=== PATIENT | male | born 1960 | race Caucasian/White ===

== ENCOUNTER 2016-06-04 11:03 | Inpatient (IN) | payer MEDICAID, OTHER ==
[~2016-06-04] VITALS: Ht 188 cm; Wt 162.0 kg
[~2016-06-04 11:03] MED LIST: ASPI-556 PO; ATOR40TA28 PO; DIVA500T35 PO; HYDR25TA PO; LEVO100 PO; LITH300C3 PO; METF500T4 PO; RISP4 PO; TOLT4CAP33 PO; VITAD5000 PO
[2016-06-04] MEDS ORDERED: LEVO125 PO (11:21)
[2016-06-04] MEDS ORDERED: OMEP20 PO (11:21)
[2016-06-04] MEDS ORDERED: DIPH25CA85 PO (11:21)
[2016-06-04] MEDS ORDERED: GEMF600T3 PO (11:21)
[2016-06-04] MEDS ORDERED: DOCU-275 PO (11:21)
[2016-06-04] MEDS ORDERED: HALO5 PO (11:21)
[2016-06-04] MEDS ORDERED: LITH300C3 PO (11:21)
[2016-06-04] MEDS ORDERED: OMEG-12 PO (11:21)
[2016-06-04] MEDS ORDERED: IPRATROPIUM BROMIDE 0.5 MG/2.5 ML NEB SOLUTION NEB ONE ×2 (12:15→16:00)
[2016-06-04] MEDS ORDERED: ALBUTEROL SULFATE 5 MG/ML 20 ML NEB SOLN [BULK] NEB ONE ×2 (12:15→16:00)
[2016-06-04 12:42] LABS: BASOPHILS % (AUTO) 0.2 % (0.0-2.0); EOSINOPHILS % (AUTO) 2.4 % (1.0-6.0); HEMATOCRIT 39.5 % (41-53); HEMOGLOBIN 12.8 g/dL (13.5-17.5); LYMPHOCYTES # (AUTO) 0.9 K/uL (1.0-4.8); LYMPHOCYTES % (AUTO) 25.8 % (22.0-44.0); MEAN CORPUSCULAR HEMOGLOBIN 27.6 pg (26.0-34.0); MEAN CORPUSCULAR HGB CONC 32.3 G/dL (31.0-37.0); MEAN CORPUSCULAR VOLUME 85 fL (80-100); MONOCYTES # (AUTO) 0.4 K/uL (0.1-1.0); MONOCYTES % (AUTO) 11.4 % (2.0-9.0); NEUTROPHILS # (AUTO) 2.1 K/uL (1.8-7.7); NEUTROPHILS % (AUTO) 60.2 % (40.0-70.0); PLATELET COUNT (AUTO) 182 K/uL (150-450); RED BLOOD CELL COUNT(AUTO) 4.62 MIL/uL (4.50-5.90); RED CELL DISTRIBUTION WIDTH 15.3 % (11.5-14.5); WHITE BLOOD COUNT (AUTO) 3.5 K/uL (4.5-11.0)
[2016-06-04 12:50] LABS: ANION GAP 0 mmol/L (8-16); CALCIUM, TOTAL 8.3 mg/dL (8.8-10.5); CARBON DIOXIDE 35 mmol/L (22-29); CHLORIDE 99 mmol/L (98-107); CREATININE 1.03 mg/dL (0.60-1.30); GLOMERULAR FILTR. RATE CALC > 60 mL/min (>60); POTASSIUM 4.3 mmol/L (3.5-5.1); SODIUM SERUM 134 mmol/L (136-145); UREA NITROGEN, BLOOD 12 mg/dL (7-18)
[2016-06-04 13:04] LABS: ALANINE AMINOTRANSFERASE 19 U/L (12-78); ALBUMIN 3.3 g/dL (3.4-5.0); ASPARTATE AMINOTRANSFERASE 13 U/L (15-37); B-TYPE NATRIURETIC PEPTIDE 16 pg/mL (0-100); BILIRUBIN,TOTAL 0.3 mg/dL (0.1-1.0); THYROID STIMULATING HORMONE 13.75 uIU/mL (0.36-3.74); TOTAL PROTEIN, SERUM 7.1 g/dL (6.4-8.2); VALPROIC ACID 81 mcg/mL (50-100)
[2016-06-04 13:20] LABS: APPEARANCE,URINE CLEAR (CLEAR); GLUCOSE, URINE (UA) NEGATIVE (NEGATIVE); KETONES,URINE NEGATIVE (NEGATIVE); LEUKOCYTE ESTERASE ,URINE NEGATIVE (NEGATIVE); OCCULT BLOOD,URINE NEGATIVE (NEGATIVE); PH,URINE 6.5 (5.0-8.0); PROTEIN,URINE NEGATIVE (NEGATIVE)
[2016-06-04] MEDS ORDERED: 0.9% SODIUM CHLORIDE 5 ML NEB SOLUTION NEB ONE ×2 (13:24→16:02)
[2016-06-04 13:25] LABS: ADD UA MICROSCOPIC NO
[2016-06-04 14:15] LABS: INFLUENZA TYPE B NEGATIVE FOR TYPE B (NEGATIVE)
[2016-06-04] MEDS ORDERED: LEVOFLOXACIN 750 MG/D5% WATER 150 ML IV ONE (15:00)
[2016-06-04] MEDS ORDERED: MAGNESIUM HYDROXIDE SUSPENSION 30 ML UDCUP PO PRN (16:45)
[2016-06-04] MEDS ORDERED: DEXTROSE 50%-WATER 25 GM/50 ML SYRINGE IVP PRN (16:45)
[2016-06-04 17:51] VITALS: BP 113/65
[2016-06-04] MEDS ORDERED: PNEUMOCOCCAL VACCINE POLYVALENT 0.5 ML VIAL [PPSV23] IM ONE (18:00)
[2016-06-04] MEDS ORDERED: SODIUM CHLORIDE 0.9% 500 ML IV ONE (18:18)
[2016-06-04] MEDS: AZITHROMYCIN 500 MG/NS 250 ML IV SCH (18:20)
[2016-06-04] MEDS: MethylPREDNISolone SOD SUCC 125 MG/2 ML VIAL IVP SCH (18:20)
[2016-06-04] MEDS: ACETAMINOPHEN 325 MG TABLET PO PRN (18:30)
[2016-06-04 19:48] VITALS: BP 132/65
[2016-06-04 20:50] LABS: GLUCOSE,POINT OF CARE 132 MG/DL (70-110)
[2016-06-04] MEDS: BUDESONIDE 0.5 MG/2 ML NEB SOLUTION NEB SCH (21:00)
[2016-06-04] MEDS: INSULIN ASPART 100 UNITS/ML SQ PRN (22:54)
[2016-06-04 22:59] VITALS: BP 148/83
[2016-06-04] MEDS: DOCUSATE SODIUM 100 MG CAPSULE PO SCH (23:12)
[2016-06-04] MEDS: BENZONATATE 100 MG CAPSULE PO SCH (23:12)
[2016-06-05] MEDS: IPRATROPIUM BROMIDE 0.5 MG/2.5 ML NEB SOLUTION NEB PRN ×2 (00:22→09:38)
[2016-06-05] MEDS: ALBUTEROL SULFATE 2.5 MG/0.5 ML NEB SOLUTION NEB PRN ×2 (00:22→09:38)
[2016-06-05] MEDS: MethylPREDNISolone SOD SUCC 125 MG/2 ML VIAL IVP SCH ×5 (01:07→23:45)
[2016-06-05] MEDS: HEPARIN SODIUM,PORCINE 5,000 UNITS/ML VIAL SQ SCH ×4 (01:07→23:45)
[2016-06-05 04:12] LABS: GLUCOSE COMMENT 1 Received Meds; GLUCOSE,POINT OF CARE 192 MG/DL (70-110)
[2016-06-05 05:12] VITALS: BP 137/84
[2016-06-05] MEDS: BENZONATATE 100 MG CAPSULE PO SCH ×4 (05:22→23:46)
[2016-06-05] MEDS: LEVOTHYROXINE SODIUM 150 MCG TABLET PO SCH (06:09)
[2016-06-05] MEDS: INSULIN ASPART 100 UNITS/ML SQ PRN ×4 (06:10→21:03)
[2016-06-05 06:11] LABS: GLUCOSE COMMENT 1 Received Meds; GLUCOSE,POINT OF CARE 185 MG/DL (70-110)
[2016-06-05 07:17] LABS: EOSINOPHILS % (AUTO) 0 % (1.0-6.0); HEMATOCRIT 39.6 % (41-53); HEMOGLOBIN 12.9 g/dL (13.5-17.5); LYMPHOCYTES # (AUTO) 0.6 K/uL (1.0-4.8); LYMPHOCYTES % (AUTO) 12.8 % (22.0-44.0); MEAN CORPUSCULAR HGB CONC 32.5 G/dL (31.0-37.0); MEAN CORPUSCULAR VOLUME 86 fL (80-100); MONOCYTES # (AUTO) 0.1 K/uL (0.1-1.0); NEUTROPHILS # (AUTO) 4.2 K/uL (1.8-7.7); NEUTROPHILS % (AUTO) 84.2 % (40.0-70.0); PLATELET COUNT (AUTO) 200 K/uL (150-450); RED BLOOD CELL COUNT(AUTO) 4.61 MIL/uL (4.50-5.90)
[2016-06-05 07:37] LABS: ALANINE AMINOTRANSFERASE 18 U/L (12-78); ALBUMIN 3.2 g/dL (3.4-5.0); ANION GAP 6 mmol/L (8-16); ASPARTATE AMINOTRANSFERASE 8 U/L (15-37); BILIRUBIN,TOTAL 0.3 mg/dL (0.1-1.0); CALCIUM, TOTAL 8.8 mg/dL (8.8-10.5); CARBON DIOXIDE 33 mmol/L (22-29); CHLORIDE 97 mmol/L (98-107); CREATININE 1.07 mg/dL (0.60-1.30); GLOMERULAR FILTR. RATE CALC > 60 mL/min (>60); PHOSPHORUS 3.3 mg/dL (2.5-4.9); POTASSIUM 4.9 mmol/L (3.5-5.1); SODIUM SERUM 136 mmol/L (136-145); TOTAL PROTEIN, SERUM 7.5 g/dL (6.4-8.2); UREA NITROGEN, BLOOD 11 mg/dL (7-18)
[2016-06-05 07:43] VITALS: BP 113/80
[2016-06-05] MEDS: DOCUSATE SODIUM 100 MG CAPSULE PO SCH ×2 (08:53→21:00)
[2016-06-05] MEDS: PANTOPRAZOLE SODIUM 40 MG DR TABLET PO SCH (08:53)
[2016-06-05] MEDS: BUDESONIDE 0.5 MG/2 ML NEB SOLUTION NEB SCH ×2 (09:38→20:01)
[2016-06-05 09:46] LABS: ABG A-A DIFF O2 39.1 mmHg (10-20.0); ABG BASE EXCESS 1.8 mmol/L (-2.0-3.0); ABG HCO3 25.2 mmol/L (22.0-26.0); ABG OXYHEMOGLOBIN 81.7 % (94.0-100.0); ABG PCO2 48 mmHg (35-45); ABG PH 7.373 (7.35-7.450); ALLEN TEST, BLOOD GAS Positive; TEMPERATURE, FAHRENHEIT, BG 98.6 FAHREN (96.0-98.6)
[2016-06-05 12:07] LABS: GLUCOSE COMMENT 1 Received Meds; GLUCOSE,POINT OF CARE 156 MG/DL (70-110)
[2016-06-05] MEDS: DIVALPROEX SODIUM 500 MG DR TABLET PO SCH ×2 (12:07→21:01)
[2016-06-05 12:27] VITALS: BP 121/71
[2016-06-05] MEDS ORDERED: LORazepam 2 MG/ML VIAL IM PRN (12:45)
[2016-06-05] MEDS ORDERED: HALOPERIDOL LACTATE 5 MG/ML VIAL IM PRN ×2 (12:45)
[2016-06-05] MEDS ORDERED: HALOPERIDOL 5 MG TABLET PO PRN (12:45)
[2016-06-05] MEDS ORDERED: LORazepam 2 MG TABLET PO PRN (12:45)
[2016-06-05 15:39] VITALS: BP 131/86
[2016-06-05] MEDS: AZITHROMYCIN 500 MG/NS 250 ML IV SCH (17:23)
[2016-06-05] MEDS: ACETAMINOPHEN 325 MG TABLET PO PRN (17:42)
[2016-06-05 18:16] LABS: GLUCOSE COMMENT 1 Received Meds; GLUCOSE,POINT OF CARE 181 MG/DL (70-110)
[2016-06-05 19:51] VITALS: BP 139/65
[2016-06-05 21:16] LABS: GLUCOSE COMMENT 1 Received Meds; GLUCOSE,POINT OF CARE 162 MG/DL (70-110)
[2016-06-05 23:49] VITALS: BP 142/91
[2016-06-06 04:21] VITALS: BP 141/75
[2016-06-06] MEDS: MethylPREDNISolone SOD SUCC 125 MG/2 ML VIAL IVP SCH (06:15)
[2016-06-06] MEDS: LEVOTHYROXINE SODIUM 150 MCG TABLET PO SCH (06:15)
[2016-06-06] MEDS: INSULIN ASPART 100 UNITS/ML SQ PRN ×4 (06:17→20:35)
[2016-06-06 06:31] LABS: GLUCOSE COMMENT 1 Received Meds; GLUCOSE,POINT OF CARE 214 MG/DL (70-110)
[2016-06-06 07:36] VITALS: BP 135/77
[2016-06-06] MEDS: BUDESONIDE 0.5 MG/2 ML NEB SOLUTION NEB SCH ×2 (07:45→20:29)
[2016-06-06] MEDS: BENZONATATE 100 MG CAPSULE PO SCH ×2 (08:26→17:25)
[2016-06-06] MEDS: PANTOPRAZOLE SODIUM 40 MG DR TABLET PO SCH (08:26)
[2016-06-06] MEDS: DOCUSATE SODIUM 100 MG CAPSULE PO SCH ×2 (08:26→20:34)
[2016-06-06] MEDS: DIVALPROEX SODIUM 500 MG DR TABLET PO SCH ×2 (08:28→20:34)
[2016-06-06] MEDS: HEPARIN SODIUM,PORCINE 5,000 UNITS/ML VIAL SQ SCH ×2 (08:29→17:25)
[2016-06-06 11:50] VITALS: BP 132/79
[2016-06-06 11:56] LABS: GLUCOSE,POINT OF CARE 152 MG/DL (70-110)
[2016-06-06] MEDS: PredniSONE 10 MG TABLET PO SCH (12:33)
[2016-06-06 15:24] VITALS: BP 136/79
[2016-06-06] MEDS: AZITHROMYCIN 500 MG/NS 250 ML IV SCH (17:26)
[2016-06-06 17:42] LABS: GLUCOSE COMMENT 1 Received Meds; GLUCOSE,POINT OF CARE 151 MG/DL (70-110)
[2016-06-06 19:38] VITALS: BP 142/78
[2016-06-06] MEDS: ALBUTEROL SULFATE 2.5 MG/0.5 ML NEB SOLUTION NEB PRN (20:29)
[2016-06-06] MEDS: IPRATROPIUM BROMIDE 0.5 MG/2.5 ML NEB SOLUTION NEB PRN (20:29)
[2016-06-06 20:50] LABS: GLUCOSE COMMENT 1 Received Meds; GLUCOSE,POINT OF CARE 178 MG/DL (70-110)
[2016-06-06 23:19] VITALS: BP 128/80
[2016-06-07] MEDS: HEPARIN SODIUM,PORCINE 5,000 UNITS/ML VIAL SQ SCH ×2 (00:17→08:31)
[2016-06-07] MEDS: BENZONATATE 100 MG CAPSULE PO SCH ×2 (00:17→08:31)
[2016-06-07 05:10] VITALS: BP 131/77
[2016-06-07] MEDS: LEVOTHYROXINE SODIUM 150 MCG TABLET PO SCH (05:57)
[2016-06-07 06:02] LABS: GLUCOSE COMMENT 1 Received Meds; GLUCOSE,POINT OF CARE 118 MG/DL (70-110)
[2016-06-07 07:10] VITALS: BP 111/73
[2016-06-07] MEDS: PredniSONE 10 MG TABLET PO SCH (08:31)
[2016-06-07] MEDS: PANTOPRAZOLE SODIUM 40 MG DR TABLET PO SCH (08:31)
[2016-06-07] MEDS: DOCUSATE SODIUM 100 MG CAPSULE PO SCH (08:31)
[2016-06-07] MEDS: DIVALPROEX SODIUM 500 MG DR TABLET PO SCH (08:32)
[2016-06-07] MEDS: BUDESONIDE 0.5 MG/2 ML NEB SOLUTION NEB SCH (09:50)
[2016-06-07 11:14] VITALS: BP 131/88
[2016-06-07 11:51] LABS: GLUCOSE,POINT OF CARE 113 MG/DL (70-110)
[2016-06-08] MEDS ORDERED: IPRAHFA IH (21:46)
[2016-06-08] MEDS ORDERED: ALBU0.212 IH (21:46)
[2016-09-10] MEDS ORDERED: TOLT4CAP33 PO (11:37)
== END 2016-06-07 13:12 | disposition home or self-care (01) | DRG 133 ==
LOC: EMS 11:05 → 6N 16:27 → MERGE 16:27
PROVIDERS: ADMIT Internal Medicine; ATTEND Internal Medicine
DX: J96.20 Acute and chronic respiratory failure, unspecified whether with hypoxia or hypercapnia (principal); E44.0 Moderate protein-calorie malnutrition; J44.1 Chronic obstructive pulmonary disease with (acute) exacerbation; E87.1 Hypo-osmolality and hyponatremia; Z68.42 Body mass index [BMI] 45.0-49.9, adult; I10 Essential (primary) hypertension; F20.9 Schizophrenia, unspecified; E11.9 Type 2 diabetes mellitus without complications; E03.9 Hypothyroidism, unspecified; F17.210 Nicotine dependence, cigarettes, uncomplicated; E66.01 Morbid (severe) obesity due to excess calories; G47.33 Obstructive sleep apnea (adult) (pediatric); F31.9 Bipolar disorder, unspecified; Z79.82 Long term (current) use of aspirin; Z79.899 Other long term (current) drug therapy; Z88.2 Allergy status to sulfonamides; Z98.890 Other specified postprocedural states; Z28.20 Immunization not carried out because of patient decision for unspecified reason
CPT/HCPCS: 71250; 82805; 82962; 83735; 84100; 84443; 87040; 87804; 90471; 93005; 94640; 94644; 96365; 96366; 99285; J0456; J1644; J1956; J2930; J7040

== ENCOUNTER 2016-06-08 21:03 | Emergency (ER) | payer OTHER ==
[~2016-06-08] VITALS: Ht 190.5 cm; Wt 115.0 kg
[~2016-06-08 21:03] MED LIST changes: +DOCU-275 PO; -HYDR25TA PO; +OMEG-12 PO; +OMEP20 PO; -TOLT4CAP33 PO
[2016-06-08 21:36] LABS: GLUCOSE,POINT OF CARE 159 MG/DL (70-110)
[2016-06-08 21:43] LABS: BASOPHILS # (AUTO) 0.04 K/uL (0.00-0.20); BASOPHILS % (AUTO) 0.6 % (0.0-2.0); EOSINOPHILS # (AUTO) 0.08 K/uL (0.00-0.70); EOSINOPHILS % (AUTO) 1.27 % (1.0-6.0); HEMATOCRIT 42.6 % (41-53); HEMOGLOBIN 13.6 g/dL (13.5-17.5); LYMPHOCYTES # (AUTO) 2.3 K/uL (1.0-4.8); LYMPHOCYTES % (AUTO) 34.2 % (22.0-44.0); MEAN CORPUSCULAR HEMOGLOBIN 27.4 pg (26.0-34.0); MEAN CORPUSCULAR VOLUME 86 fL (80-100); MONOCYTES # (AUTO) 0.7 K/uL (0.1-1.0); MONOCYTES % (AUTO) 10.5 % (2.0-9.0); NEUTROPHILS # (AUTO) 3.5 K/uL (1.8-7.7); NEUTROPHILS % (AUTO) 53.4 % (40.0-70.0); PLATELET COUNT (AUTO) 215 K/uL (150-450); RED BLOOD CELL COUNT(AUTO) 4.97 MIL/uL (4.50-5.90); RED CELL DISTRIBUTION WIDTH 15.8 % (11.5-14.5); WHITE BLOOD COUNT (AUTO) 6.6 K/uL (4.5-11.0)
[2016-06-08] MEDS ORDERED: ALBU0.212 IH (21:46)
[2016-06-08] MEDS ORDERED: IPRAHFA IH (21:46)
[2016-06-08 21:48] LABS: ANION GAP 2 mmol/L (8-16); CALCIUM, TOTAL 8.5 mg/dL (8.8-10.5); CARBON DIOXIDE 35 mmol/L (22-29); CHLORIDE 100 mmol/L (98-107); CREATININE 1.06 mg/dL (0.60-1.30); GLOMERULAR FILTR. RATE CALC > 60 mL/min (>60); POTASSIUM 3.9 mmol/L (3.5-5.1); SODIUM SERUM 137 mmol/L (136-145); UREA NITROGEN, BLOOD 21 mg/dL (7-18)
[2016-06-08 21:52] LABS: PROTHROMBIN TIME 10.6 SEC (9.4-11.6)
[2016-06-08 22:04] LABS: B-TYPE NATRIURETIC PEPTIDE 32 pg/mL (0-100)
[2016-06-08 22:13] LABS: ALANINE AMINOTRANSFERASE 22 U/L (12-78); ALBUMIN 3.2 g/dL (3.4-5.0); ASPARTATE AMINOTRANSFERASE 10 U/L (15-37); BILIRUBIN,TOTAL 0.2 mg/dL (0.1-1.0); CREATINE KINASE MB 2.4 ng/mL (0-5); CREATINE KINASE, TOTAL 76 U/L (39-308); TOTAL PROTEIN, SERUM 6.9 g/dL (6.4-8.2)
[2016-06-08 22:20] LABS: LACTIC ACID 1.1 mmol/L (0.4-2.0)
[2016-06-08] MEDS ORDERED: LEVALBUTEROL HCL 1.25 MG/0.5 ML NEB SOLUTION NEB ONE (22:45)
[2016-06-08] MEDS ORDERED: IPRATROPIUM BROMIDE 0.5 MG/2.5 ML NEB SOLUTION NEB ONE (22:45)
[2016-06-08] MEDS ORDERED: DEXAMETHASONE SOD PHOS 4 MG/ML 5 ML VIAL IVP ONE (22:45)
[2016-06-08] MEDS ORDERED: HALOPERIDOL LACTATE 5 MG/ML VIAL IM ONE (23:00)
[2016-06-09] MEDS ORDERED: CefTRIAXone 1 GM/DEXTROSE 50 ML IV ONE (00:45)
[2016-06-09] MEDS ORDERED: LORazepam 2 MG/ML VIAL IVP ONE (01:30)
[2016-06-09] MEDS ORDERED: HALOPERIDOL LACTATE 5 MG/ML VIAL IVP ONE (01:30)
[2016-06-09 10:26] VITALS: BP 118/81
[2016-09-10] MEDS ORDERED: TOLT4CAP33 PO (11:37)
== END 2016-06-09 10:43 | disposition home or self-care (01) ==
LOC: EDBD 21:06 → EMS 21:06
DX: J18.9 Pneumonia, unspecified organism (principal); F29 Unspecified psychosis not due to a substance or known physiological condition; J44.9 Chronic obstructive pulmonary disease, unspecified
CPT/HCPCS: 71010; 80053; 82550; 82553; 82962; 83605; 83880; 84484; 85025; 85610; 85730; 87040; 93005; 94640; 96365; 96372; 96375; 99285; J0696; J1100; J1630 ×2; J2060; Z7610

== ENCOUNTER 2016-06-11 11:45 | Inpatient (IN) | payer MEDICAID, OTHER ==
[~2016-06-11] VITALS: Ht 188 cm; Wt 157.4 kg
[~2016-06-11 11:45] MED LIST changes: +ALBU0.212 IH; +IPRAHFA IH
[2016-06-11] MEDS ORDERED: LITH300C3 PO (12:17)
[2016-06-11] MEDS ORDERED: GEMF600T3 PO (12:17)
[2016-06-11] MEDS ORDERED: RISP4 PO (12:17)
[2016-06-11] MEDS ORDERED: ALBU8.5H IH (12:17)
[2016-06-11] MEDS ORDERED: HALO5 PO (12:17)
[2016-06-11] MEDS ORDERED: DIPH25 PO (12:17)
[2016-06-11] MEDS ORDERED: METF500T4 PO (12:17)
[2016-06-11] MEDS ORDERED: LEVO100 PO (12:17)
[2016-06-11] MEDS ORDERED: ATOR40TA28 PO (12:17)
[2016-06-11] MEDS ORDERED: DOCU-275 PO (12:17)
[2016-06-11] MEDS ORDERED: OMEP20 PO (12:17)
[2016-06-11] MEDS ORDERED: VITAD5000 PO (12:17)
[2016-06-11] MEDS ORDERED: DIVA500T35 PO (12:17)
[2016-06-11] MEDS ORDERED: OMEG300C3 PO (12:17)
[2016-06-11] MEDS ORDERED: IPRATROPIUM BROMIDE 0.5 MG/2.5 ML NEB SOLUTION NEB ONE (12:30)
[2016-06-11] MEDS ORDERED: ALBUTEROL SULFATE 2.5 MG/0.5 ML NEB SOLUTION NEB ONE (12:30)
[2016-06-11 12:36] LABS: GLUCOSE,POINT OF CARE 121 MG/DL (70-110)
[2016-06-11] MEDS ORDERED: 0.9% SODIUM CHLORIDE 5 ML NEB SOLUTION NEB ONE (12:40)
[2016-06-11 12:43] LABS: BASOPHILS % (AUTO) 0.4 % (0.0-2.0); EOSINOPHILS % (AUTO) 0.8 % (1.0-6.0); HEMOGLOBIN 13.4 g/dL (13.5-17.5); LYMPHOCYTES # (AUTO) 2.3 K/uL (1.0-4.8); LYMPHOCYTES % (AUTO) 31.4 % (22.0-44.0); MEAN CORPUSCULAR HEMOGLOBIN 27.4 pg (26.0-34.0); MEAN CORPUSCULAR HGB CONC 31.8 G/dL (31.0-37.0); MEAN CORPUSCULAR VOLUME 86 fL (80-100); MONOCYTES # (AUTO) 0.5 K/uL (0.1-1.0); MONOCYTES % (AUTO) 6.8 % (2.0-9.0); NEUTROPHILS # (AUTO) 4.4 K/uL (1.8-7.7); NEUTROPHILS % (AUTO) 60.6 % (40.0-70.0); PLATELET COUNT (AUTO) 227 K/uL (150-450); RED BLOOD CELL COUNT(AUTO) 4.89 MIL/uL (4.50-5.90); RED CELL DISTRIBUTION WIDTH 15.3 % (11.5-14.5); WHITE BLOOD COUNT (AUTO) 7.2 K/uL (4.5-11.0)
[2016-06-11 12:52] LABS: ANION GAP 7 mmol/L (8-16); CALCIUM, TOTAL 8.2 mg/dL (8.8-10.5); CARBON DIOXIDE 33 mmol/L (22-29); CHLORIDE 99 mmol/L (98-107); CREATININE 0.94 mg/dL (0.60-1.30); GLOMERULAR FILTR. RATE CALC > 60 mL/min (>60); POTASSIUM 3.7 mmol/L (3.5-5.1); SODIUM SERUM 139 mmol/L (136-145); UREA NITROGEN, BLOOD 16 mg/dL (7-18)
[2016-06-11 13:04] LABS: B-TYPE NATRIURETIC PEPTIDE 22 pg/mL (0-100)
[2016-06-11 13:20] LABS: ALANINE AMINOTRANSFERASE 25 U/L (12-78); ASPARTATE AMINOTRANSFERASE 10 U/L (15-37); BILIRUBIN,TOTAL 0.3 mg/dL (0.1-1.0); TOTAL PROTEIN, SERUM 6.7 g/dL (6.4-8.2)
[2016-06-11] MEDS ORDERED: LORazepam 2 MG TABLET PO ONE (17:15)
[2016-06-11] MEDS ORDERED: LORazepam 2 MG TABLET PO PRN (21:45)
[2016-06-11] MEDS ORDERED: HALOPERIDOL 5 MG TABLET PO PRN (21:45)
[2016-06-11] MEDS ORDERED: ZOLPIDEM TARTRATE 10 MG TABLET PO PRN (21:45)
[2016-06-11 22:31] LABS: GLUCOSE,POINT OF CARE 138 MG/DL (70-110)
[2016-06-11 23:17] VITALS: BP 130/79
[2016-06-12] MEDS ORDERED: INFLUENZA VIRUS VACCINE QVS 2016-17 (3YR+)/PF 60 MCG/0.5 ML SYRINGE IM ONE (00:30)
[2016-06-12] MEDS ORDERED: PNEUMOCOCCAL VACCINE POLYVALENT 0.5 ML VIAL [PPSV23] IM ONE (00:30)
[2016-06-12 00:32] LABS: GLUCOSE, URINE (UA) NEGATIVE (NEGATIVE); KETONES,URINE NEGATIVE (NEGATIVE); LEUKOCYTE ESTERASE ,URINE NEGATIVE (NEGATIVE); OCCULT BLOOD,URINE NEGATIVE (NEGATIVE); PH,URINE 5.5 (5.0-8.0); PROTEIN,URINE NEGATIVE (NEGATIVE)
[2016-06-12 00:35] LABS: APPEARANCE,URINE HAZY (CLEAR)
[2016-06-12 00:36] VITALS: BP 138/85
[2016-06-12 00:36] LABS: ADD UA MICROSCOPIC NO
[2016-06-12 09:30] VITALS: BP 149/92
[2016-06-12] MEDS ORDERED: IBUPROFEN 400 MG TABLET PO PRN (10:00)
[2016-06-12] MEDS ORDERED: ACETAMINOPHEN 325 MG TABLET PO PRN (10:00)
[2016-06-12 17:00] VITALS: BP 114/71
[2016-06-12] MEDS: RisperiDONE 3 MG TABLET PO SCH (18:12)
[2016-06-12] MEDS: DIVALPROEX SODIUM 500 MG DR TABLET PO SCH (18:12)
[2016-06-12] MEDS: LITHIUM CARBONATE 300 MG CAPSULE PO SCH (18:12)
[2016-06-12 18:26] LABS: GLUCOSE COMMENT 1 Post Meal; GLUCOSE,POINT OF CARE 151 MG/DL (70-110)
[2016-06-12] MEDS ORDERED: ALBUTEROL SULFATE HFA 90 MCG/PUFF 8 GM INHALER IH PRN (19:15)
[2016-06-12] MEDS: ATORVASTATIN CALCIUM 40 MG TABLET PO SCH (21:07)
[2016-06-13 06:11] LABS: GLUCOSE,POINT OF CARE 152 MG/DL (70-110)
[2016-06-13 06:57] LABS: HEMOGLOBIN A1C 6.7 % (4.5-6.2)
[2016-06-13] MEDS: LEVOTHYROXINE SODIUM 100 MCG TABLET PO SCH (06:58)
[2016-06-13] MEDS: MetFORMIN HCL 500 MG TABLET PO SCH ×2 (07:01→17:17)
[2016-06-13 07:02] LABS: THYROID STIMULATING HORMONE 15.99 uIU/mL (0.36-3.74)
[2016-06-13 09:13] VITALS: BP 129/77
[2016-06-13] MEDS: LITHIUM CARBONATE 300 MG CAPSULE PO SCH ×2 (09:33→17:17)
[2016-06-13] MEDS: DIVALPROEX SODIUM 500 MG DR TABLET PO SCH ×2 (09:34→17:17)
[2016-06-13] MEDS: OMEPRAZOLE 20 MG CAPSULE PO SCH (09:34)
[2016-06-13] MEDS: RisperiDONE 3 MG TABLET PO SCH ×2 (09:34→17:17)
[2016-06-13 13:01] LABS: GLUCOSE,POINT OF CARE 140 MG/DL (70-110)
[2016-06-13 16:46] LABS: GLUCOSE COMMENT 1 Received Meds; GLUCOSE,POINT OF CARE 140 MG/DL (70-110)
[2016-06-13 16:54] VITALS: BP 128/73
[2016-06-13] MEDS: ATORVASTATIN CALCIUM 40 MG TABLET PO SCH (21:05)
[2016-06-13 21:21] LABS: GLUCOSE,POINT OF CARE 103 MG/DL (70-110)
[2016-06-14 05:21] LABS: GLUCOSE,POINT OF CARE 133 MG/DL (70-110)
[2016-06-14 06:14] VITALS: BP 125/72
[2016-06-14] MEDS: MetFORMIN HCL 500 MG TABLET PO SCH ×2 (06:33→17:47)
[2016-06-14] MEDS: LEVOTHYROXINE SODIUM 100 MCG TABLET PO SCH (06:33)
[2016-06-14] MEDS: OMEPRAZOLE 20 MG CAPSULE PO SCH (08:02)
[2016-06-14] MEDS: RisperiDONE 3 MG TABLET PO SCH ×2 (08:02→16:51)
[2016-06-14] MEDS: DIVALPROEX SODIUM 500 MG DR TABLET PO SCH ×2 (08:03→16:51)
[2016-06-14] MEDS: LITHIUM CARBONATE 300 MG CAPSULE PO SCH ×2 (08:03→16:51)
[2016-06-14 09:53] VITALS: BP 164/88
[2016-06-14 11:46] LABS: GLUCOSE,POINT OF CARE 115 MG/DL (70-110)
[2016-06-14 16:56] LABS: GLUCOSE COMMENT 1 Received Meds; GLUCOSE,POINT OF CARE 142 MG/DL (70-110)
[2016-06-14 17:51] VITALS: BP 128/72
[2016-06-14] MEDS: ATORVASTATIN CALCIUM 40 MG TABLET PO SCH (21:20)
[2016-06-14 21:31] LABS: GLUCOSE,POINT OF CARE 108 MG/DL (70-110)
[2016-06-15 03:13] VITALS: BP 128/99
[2016-06-15 05:16] LABS: GLUCOSE,POINT OF CARE 119 MG/DL (70-110)
[2016-06-15] MEDS: MetFORMIN HCL 500 MG TABLET PO SCH ×2 (06:37→17:25)
[2016-06-15] MEDS: LEVOTHYROXINE SODIUM 100 MCG TABLET PO SCH (06:37)
[2016-06-15] MEDS: DIVALPROEX SODIUM 500 MG DR TABLET PO SCH ×2 (09:13→17:25)
[2016-06-15] MEDS: LITHIUM CARBONATE 300 MG CAPSULE PO SCH ×2 (09:13→17:25)
[2016-06-15] MEDS: OMEPRAZOLE 20 MG CAPSULE PO SCH (09:13)
[2016-06-15] MEDS: RisperiDONE 3 MG TABLET PO SCH ×2 (09:13→17:25)
[2016-06-15 09:59] VITALS: BP 131/89
[2016-06-15 11:26] LABS: GLUCOSE,POINT OF CARE 94 MG/DL (70-110)
[2016-06-15 16:51] LABS: GLUCOSE COMMENT 1 Received Meds; GLUCOSE,POINT OF CARE 129 MG/DL (70-110)
[2016-06-15 17:11] VITALS: BP 119/79
[2016-06-15] MEDS: ATORVASTATIN CALCIUM 40 MG TABLET PO SCH (21:11)
[2016-06-15 21:21] LABS: GLUCOSE,POINT OF CARE 125 MG/DL (70-110)
[2016-06-16 05:25] LABS: GLUCOSE,POINT OF CARE 104 MG/DL (70-110)
[2016-06-16] MEDS: LEVOTHYROXINE SODIUM 100 MCG TABLET PO SCH (06:34)
[2016-06-16] MEDS: MetFORMIN HCL 500 MG TABLET PO SCH ×2 (06:34→17:03)
[2016-06-16 07:44] LABS: LITHIUM 0.26 mmol/L (0.60-1.20)
[2016-06-16 08:30] VITALS: BP 126/86
[2016-06-16] MEDS: OMEPRAZOLE 20 MG CAPSULE PO SCH (08:51)
[2016-06-16] MEDS: RisperiDONE 3 MG TABLET PO SCH ×2 (08:51→17:02)
[2016-06-16] MEDS: LITHIUM CARBONATE 300 MG CAPSULE PO SCH ×2 (08:51→17:03)
[2016-06-16] MEDS: DIVALPROEX SODIUM 500 MG DR TABLET PO SCH ×2 (08:51→17:02)
[2016-06-16 11:41] LABS: GLUCOSE,POINT OF CARE 79 MG/DL (70-110)
[2016-06-16 16:23] VITALS: BP 137/70
[2016-06-16 17:06] LABS: GLUCOSE,POINT OF CARE 90 MG/DL (70-110)
[2016-06-16] MEDS: ATORVASTATIN CALCIUM 40 MG TABLET PO SCH (21:11)
[2016-06-16 21:41] LABS: GLUCOSE,POINT OF CARE 104 MG/DL (70-110)
[2016-06-17 06:07] LABS: GLUCOSE,POINT OF CARE 104 MG/DL (70-110)
[2016-06-17] MEDS: LEVOTHYROXINE SODIUM 100 MCG TABLET PO SCH (07:00)
[2016-06-17] MEDS: MetFORMIN HCL 500 MG TABLET PO SCH ×2 (07:00→17:15)
[2016-06-17 08:00] VITALS: BP 139/85
[2016-06-17] MEDS: OMEPRAZOLE 20 MG CAPSULE PO SCH (08:59)
[2016-06-17] MEDS: RisperiDONE 3 MG TABLET PO SCH ×2 (09:00→17:15)
[2016-06-17] MEDS: LITHIUM CARBONATE 300 MG CAPSULE PO SCH ×2 (09:00→17:15)
[2016-06-17] MEDS: DIVALPROEX SODIUM 500 MG DR TABLET PO SCH ×2 (09:00→17:16)
[2016-06-17 11:36] LABS: GLUCOSE,POINT OF CARE 86 MG/DL (70-110)
[2016-06-17 16:31] LABS: GLUCOSE COMMENT 1 Received Meds; GLUCOSE,POINT OF CARE 119 MG/DL (70-110)
[2016-06-17 17:02] VITALS: BP 124/73
[2016-06-17] MEDS: ATORVASTATIN CALCIUM 40 MG TABLET PO SCH (20:57)
[2016-06-17 21:01] LABS: GLUCOSE,POINT OF CARE 82 MG/DL (70-110)
[2016-06-18 05:46] LABS: GLUCOSE,POINT OF CARE 87 MG/DL (70-110)
[2016-06-18 05:59] VITALS: BP 140/99
[2016-06-18] MEDS: MetFORMIN HCL 500 MG TABLET PO SCH (06:51)
[2016-06-18] MEDS: LEVOTHYROXINE SODIUM 100 MCG TABLET PO SCH (06:51)
[2016-06-18 08:30] VITALS: BP 126/90
[2016-06-18] MEDS: LITHIUM CARBONATE 300 MG CAPSULE PO SCH (09:14)
[2016-06-18] MEDS: OMEPRAZOLE 20 MG CAPSULE PO SCH (09:14)
[2016-06-18] MEDS: DIVALPROEX SODIUM 500 MG DR TABLET PO SCH (09:15)
[2016-06-18] MEDS: RisperiDONE 3 MG TABLET PO SCH (09:15)
[2016-06-18] MEDS ORDERED: RISP3 PO (10:58)
[2016-06-18 11:46] LABS: GLUCOSE COMMENT 1 Juice/Food/D50 Given; GLUCOSE,POINT OF CARE 63 MG/DL (70-110)
[2016-09-10] MEDS ORDERED: TOLT4CAP33 PO (11:37)
== END 2016-06-18 15:15 | disposition home or self-care (01) | DRG 750 ==
LOC: EMS 11:48 → 3EI 22:09
PROVIDERS: ADMIT Psychiatry & Neurology Psychiatry; ATTEND Psychiatry & Neurology Psychiatry
DX: F20.0 Paranoid schizophrenia (principal); Z68.41 Body mass index [BMI] 40.0-44.9, adult; E55.9 Vitamin D deficiency, unspecified; E11.9 Type 2 diabetes mellitus without complications; E03.9 Hypothyroidism, unspecified; E78.5 Hyperlipidemia, unspecified; F17.210 Nicotine dependence, cigarettes, uncomplicated; F32.9 Major depressive disorder, single episode, unspecified; J44.9 Chronic obstructive pulmonary disease, unspecified; J45.909 Unspecified asthma, uncomplicated; K21.9 Gastro-esophageal reflux disease without esophagitis; K59.09 Other constipation; E66.01 Morbid (severe) obesity due to excess calories; Z87.01 Personal history of pneumonia (recurrent); Z79.899 Other long term (current) drug therapy; Z79.84 Long term (current) use of oral hypoglycemic drugs; Z79.51 Long term (current) use of inhaled steroids; Z88.2 Allergy status to sulfonamides; Z28.21 Immunization not carried out because of patient refusal
CPT/HCPCS: 80307; 82948; 82962; 83036; 84443; 87040; 87081; 93005; 94644; 99285; J3535

== ENCOUNTER 2016-06-20 22:33 | Emergency (ER) | payer MEDICAID, OTHER ==
[~2016-06-20] VITALS: Ht 190.5 cm; Wt 154.6 kg
[~2016-06-20 22:33] MED LIST changes: -ALBU0.212 IH; -ASPI-556 PO; -DOCU-275 PO; -IPRAHFA IH; -OMEG-12 PO; +RISP3 PO; -RISP4 PO; -VITAD5000 PO
[2016-06-21 00:24] LABS: BASOPHILS % (AUTO) 0.6 % (0.0-2.0); EOSINOPHILS % (AUTO) 1.3 % (1.0-6.0); HEMATOCRIT 37.8 % (41-53); HEMOGLOBIN 12.1 g/dL (13.5-17.5); LYMPHOCYTES # (AUTO) 1.9 K/uL (1.0-4.8); LYMPHOCYTES % (AUTO) 27.8 % (22.0-44.0); MEAN CORPUSCULAR HEMOGLOBIN 27.5 pg (26.0-34.0); MEAN CORPUSCULAR HGB CONC 31.9 G/dL (31.0-37.0); MEAN CORPUSCULAR VOLUME 86 fL (80-100); MONOCYTES # (AUTO) 0.6 K/uL (0.1-1.0); MONOCYTES % (AUTO) 9.2 % (2.0-9.0); NEUTROPHILS # (AUTO) 4.3 K/uL (1.8-7.7); NEUTROPHILS % (AUTO) 61.1 % (40.0-70.0); PLATELET COUNT (AUTO) 167 K/uL (150-450); RED BLOOD CELL COUNT(AUTO) 4.39 MIL/uL (4.50-5.90); RED CELL DISTRIBUTION WIDTH 15.7 % (11.5-14.5)
[2016-06-21 00:32] LABS: ANION GAP 8 mmol/L (8-16); CALCIUM, TOTAL 7.8 mg/dL (8.8-10.5); CARBON DIOXIDE 31 mmol/L (22-29); CHLORIDE 102 mmol/L (98-107); CREATININE 1.04 mg/dL (0.60-1.30); GLOMERULAR FILTR. RATE CALC > 60 mL/min (>60); POTASSIUM 3.8 mmol/L (3.5-5.1); SODIUM SERUM 141 mmol/L (136-145); UREA NITROGEN, BLOOD 8 mg/dL (7-18)
[2016-06-21 00:38] LABS: ALANINE AMINOTRANSFERASE 18 U/L (12-78); ASPARTATE AMINOTRANSFERASE 9 U/L (15-37); BILIRUBIN,TOTAL 0.2 mg/dL (0.1-1.0); TOTAL PROTEIN, SERUM 6.3 g/dL (6.4-8.2)
[2016-06-21 00:43] LABS: LACTIC ACID 2.5 mmol/L (0.4-2.0)
[2016-06-21 00:50] LABS: B-TYPE NATRIURETIC PEPTIDE 26 pg/mL (0-100)
[2016-06-21 01:19] LABS: TEMPERATURE, FAHRENHEIT, BG 98.6 FAHREN (96.0-98.6)
[2016-06-21 01:25] LABS: ABG A-A DIFF O2 16.7 mmHg (10-20.0); ABG BASE EXCESS 4.7 mmol/L (-2.0-3.0); ABG HCO3 27.5 mmol/L (22.0-26.0); ABG PCO2 55 mmHg (35-45); ABG PH 7.357 (7.35-7.450); ALLEN TEST, BLOOD GAS POS
[2016-06-21 01:31] LABS: VALPROIC ACID 52 mcg/mL (50-100)
[2016-06-21 02:16] LABS: REFLEX LACTIC ACID? YES YES
[2016-06-21 03:27] VITALS: BP 128/83
[2016-09-10] MEDS ORDERED: TOLT4CAP33 PO (11:37)
== END 2016-06-21 04:03 | disposition home or self-care (01) ==
LOC: EMS 22:35
DX: R41.82 Altered mental status, unspecified (principal); F25.9 Schizoaffective disorder, unspecified; J44.9 Chronic obstructive pulmonary disease, unspecified; E11.65 Type 2 diabetes mellitus with hyperglycemia; I10 Essential (primary) hypertension; E03.9 Hypothyroidism, unspecified; F17.210 Nicotine dependence, cigarettes, uncomplicated; F31.9 Bipolar disorder, unspecified; F14.90 Cocaine use, unspecified, uncomplicated; F15.90 Other stimulant use, unspecified, uncomplicated; Z88.2 Allergy status to sulfonamides
CPT/HCPCS: 36415; 71010; 80053; 80164; 80178; 82140; 82805; 83605; 83690; 83880; 84484; 85025; 93005; 99285; G0480

== ENCOUNTER 2016-09-10 11:24 | Emergency (ER) | payer OTHER ==
[~2016-09-10] VITALS: Ht 193 cm; Wt 136.4 kg
[2016-09-10 11:37] LABS: GLUCOSE,POINT OF CARE 124 MG/DL (70-110)
[2016-09-10] MEDS ORDERED: OXYB5 PO (11:37)
[2016-09-10] MEDS ORDERED: ALBU8.5H IH (11:37)
[2016-09-10] MEDS ORDERED: TOLT4LA PO (11:37)
[2016-09-10] MEDS ORDERED: VITAD1000 PO (11:37)
[2016-09-10] MEDS ORDERED: LISI1TAB9 PO (11:37)
[2016-09-10 11:54] LABS: BASOPHILS % (AUTO) 0.4 % (0.0-2.0); EOSINOPHILS % (AUTO) 1.9 % (1.0-6.0); HEMATOCRIT 42.8 % (41-53); HEMOGLOBIN 13.5 g/dL (13.5-17.5); LYMPHOCYTES # (AUTO) 1.5 K/uL (1.0-4.8); LYMPHOCYTES % (AUTO) 30.4 % (22.0-44.0); MEAN CORPUSCULAR HEMOGLOBIN 27.2 pg (26.0-34.0); MEAN CORPUSCULAR HGB CONC 31.4 G/dL (31.0-37.0); MEAN CORPUSCULAR VOLUME 87 fL (80-100); MONOCYTES # (AUTO) 0.5 K/uL (0.1-1.0); MONOCYTES % (AUTO) 9.4 % (2.0-9.0); NEUTROPHILS # (AUTO) 2.8 K/uL (1.8-7.7); NEUTROPHILS % (AUTO) 57.9 % (40.0-70.0); PLATELET COUNT (AUTO) 196 K/uL (150-450); RED BLOOD CELL COUNT(AUTO) 4.95 MIL/uL (4.50-5.90); RED CELL DISTRIBUTION WIDTH 14.6 % (11.5-14.5); WHITE BLOOD COUNT (AUTO) 4.8 K/uL (4.5-11.0)
[2016-09-10 12:06] LABS: ANION GAP 5 mmol/L (8-16); CALCIUM, TOTAL 8.3 mg/dL (8.8-10.5); CARBON DIOXIDE 34 mmol/L (22-29); CHLORIDE 101 mmol/L (98-107); CREATININE 0.89 mg/dL (0.60-1.30); GLOMERULAR FILTR. RATE CALC > 60 mL/min (>60); POTASSIUM 4.1 mmol/L (3.5-5.1); SODIUM SERUM 140 mmol/L (136-145); UREA NITROGEN, BLOOD 11 mg/dL (7-18)
[2016-09-10 12:09] LABS: ALANINE AMINOTRANSFERASE 25 U/L (12-78); ALBUMIN 3.2 g/dL (3.4-5.0); ASPARTATE AMINOTRANSFERASE 12 U/L (15-37); BILIRUBIN,TOTAL 0.3 mg/dL (0.1-1.0); TOTAL PROTEIN, SERUM 6.9 g/dL (6.4-8.2); VALPROIC ACID 75 mcg/mL (50-100)
[2016-09-10 12:11] VITALS: BP 140/83
[2016-09-10 13:37] LABS: LITHIUM 0.41 mmol/L (0.60-1.20)
== END 2016-09-10 13:52 | disposition home or self-care (01) ==
LOC: EMS 11:26
DX: F31.9 Bipolar disorder, unspecified (principal); J44.9 Chronic obstructive pulmonary disease, unspecified; I10 Essential (primary) hypertension; E03.9 Hypothyroidism, unspecified; E66.01 Morbid (severe) obesity due to excess calories; F17.210 Nicotine dependence, cigarettes, uncomplicated; F14.90 Cocaine use, unspecified, uncomplicated; F12.90 Cannabis use, unspecified, uncomplicated; Z88.2 Allergy status to sulfonamides; Z68.36 Body mass index [BMI] 36.0-36.9, adult
CPT/HCPCS: 36415; 80053; 80164; 80178; 80307; 82962; 85025; 99284; G0480

== ENCOUNTER 2017-02-10 16:53 | Inpatient (IN) | payer MEDICAID, OTHER ==
[~2017-02-10] VITALS: Ht 191.8 cm; Wt 156.9 kg
[~2017-02-10 16:53] MED LIST changes: +ALBU8.5H8 IH; +LISI1TAB9 PO; +OXYB5 PO; +TOLT4CAP33 PO; +VITAD1000 PO
[2017-02-10 17:28] LABS: GLUCOSE,POINT OF CARE 133 MG/DL (70-110)
[2017-02-10 17:32] LABS: BASOPHILS % (AUTO) 0.3 % (0.0-2.0); EOSINOPHILS % (AUTO) 4.9 % (1.0-6.0); HEMATOCRIT 40.1 % (41-53); HEMOGLOBIN 13.4 g/dL (13.5-17.5); LYMPHOCYTES # (AUTO) 1.9 K/uL (1.0-4.8); MEAN CORPUSCULAR HEMOGLOBIN 29.4 pg (26.0-34.0); MEAN CORPUSCULAR HGB CONC 33.4 G/dL (31.0-37.0); MEAN CORPUSCULAR VOLUME 88 fL (80-100); MONOCYTES # (AUTO) 0.4 K/uL (0.1-1.0); MONOCYTES % (AUTO) 7.7 % (2.0-9.0); NEUTROPHILS # (AUTO) 2.8 K/uL (1.8-7.7); NEUTROPHILS % (AUTO) 52.1 % (40.0-70.0); PLATELET COUNT (AUTO) 254 K/uL (150-450); RED BLOOD CELL COUNT(AUTO) 4.55 MIL/uL (4.50-5.90); RED CELL DISTRIBUTION WIDTH 15.9 % (11.5-14.5); WHITE BLOOD COUNT (AUTO) 5.3 K/uL (4.5-11.0)
[2017-02-10 17:45] LABS: ANION GAP 5 mmol/L (8-16); CALCIUM, TOTAL 8.7 mg/dL (8.8-10.5); CARBON DIOXIDE 34 mmol/L (22-29); CHLORIDE 99 mmol/L (98-107); CREATININE 1.23 mg/dL (0.60-1.30); GLOMERULAR FILTR. RATE CALC > 60 mL/min (>60); SODIUM SERUM 138 mmol/L (136-145); UREA NITROGEN, BLOOD 11 mg/dL (7-18)
[2017-02-10 17:49] LABS: LITHIUM < 0.20 mmol/L (0.60-1.20)
[2017-02-10 18:00] LABS: ALANINE AMINOTRANSFERASE 33 U/L (12-78); ALBUMIN 3.5 g/dL (3.4-5.0); ASPARTATE AMINOTRANSFERASE 17 U/L (15-37); BILIRUBIN,TOTAL 0.3 mg/dL (0.1-1.0); THYROID STIMULATING HORMONE 31.91 uIU/mL (0.36-3.74); TOTAL PROTEIN, SERUM 7.5 g/dL (6.4-8.2); VALPROIC ACID 70 mcg/mL (50-100)
[2017-02-10] MEDS ORDERED: PERMETHRIN 5% 60 GM CREAM TP ONE ×2 (18:45→20:00)
[2017-02-10] MEDS ORDERED: ZOLPIDEM TARTRATE 10 MG TABLET PO PRN (19:00)
[2017-02-10] MEDS ORDERED: LEVOTHYROXINE SODIUM 100 MCG TABLET PO ONE (19:30)
[2017-02-10 20:02] LABS: CHOL/HDL RATIO 7.4 (4.2-7.3)
[2017-02-10 21:42] VITALS: BP 124/78
[2017-02-10] MEDS: RisperiDONE 3 MG TABLET PO SCH (22:00)
[2017-02-10] MEDS ORDERED: ALBUTEROL SULFATE HFA 90 MCG/PUFF 8 GM INHALER IH PRN (22:15)
[2017-02-10] MEDS: LITHIUM CARBONATE 300 MG CAPSULE PO SCH (22:20)
[2017-02-10] MEDS: DIVALPROEX SODIUM 500 MG DR TABLET PO SCH (22:20)
[2017-02-11 00:20] LABS: APPEARANCE,URINE CLEAR (CLEAR); GLUCOSE, URINE (UA) NEGATIVE (NEGATIVE); KETONES,URINE NEGATIVE (NEGATIVE); LEUKOCYTE ESTERASE ,URINE NEGATIVE (NEGATIVE); OCCULT BLOOD,URINE NEGATIVE (NEGATIVE); PH,URINE 6.5 (5.0-8.0); PROTEIN,URINE NEGATIVE (NEGATIVE)
[2017-02-11 00:23] LABS: ADD UA MICROSCOPIC NO
[2017-02-11] MEDS: LORazepam 2 MG TABLET PO PRN (05:19)
[2017-02-11] MEDS: HALOPERIDOL 5 MG TABLET PO PRN (05:19)
[2017-02-11 05:48] LABS: GLUCOSE,POINT OF CARE 100 MG/DL (70-110)
[2017-02-11 06:15] VITALS: BP 141/76
[2017-02-11] MEDS: LEVOTHYROXINE SODIUM 100 MCG TABLET PO SCH (06:58)
[2017-02-11] MEDS: MetFORMIN HCL 500 MG TABLET PO SCH ×2 (06:58→17:38)
[2017-02-11] MEDS ORDERED: LEVOTHYROXINE SODIUM 100 MCG TABLET PO SCH (07:00)
[2017-02-11] MEDS ORDERED: MetFORMIN HCL 500 MG TABLET PO SCH (07:30)
[2017-02-11 08:30] VITALS: BP 138/92
[2017-02-11] MEDS ORDERED: TOLTERODINE TARTRATE 2 MG ER CAPSULE PO SCH (09:00)
[2017-02-11] MEDS ORDERED: OMEPRAZOLE 20 MG CAPSULE PO SCH (09:00)
[2017-02-11] MEDS ORDERED: LISINOPRIL 10 MG TABLET PO SCH (09:00)
[2017-02-11] MEDS ORDERED: HYDROCHLOROTHIAZIDE 25 MG TABLET PO SCH (09:00)
[2017-02-11] MEDS ORDERED: CHOLECALCIFEROL (VIT D3) 1,000 UNITS TABLET PO SCH (09:00)
[2017-02-11] MEDS: CHOLECALCIFEROL (VIT D3) 1,000 UNITS TABLET PO SCH (09:33)
[2017-02-11] MEDS: OMEPRAZOLE 20 MG CAPSULE PO SCH (09:34)
[2017-02-11] MEDS: DIVALPROEX SODIUM 500 MG DR TABLET PO SCH ×2 (09:34→17:38)
[2017-02-11] MEDS: RisperiDONE 3 MG TABLET PO SCH ×2 (09:34→17:38)
[2017-02-11] MEDS: HYDROCHLOROTHIAZIDE 25 MG TABLET PO SCH (09:35)
[2017-02-11] MEDS: TOLTERODINE TARTRATE 2 MG ER CAPSULE PO SCH (09:36)
[2017-02-11] MEDS: LISINOPRIL 10 MG TABLET PO SCH (09:36)
[2017-02-11] MEDS: OXYBUTYNIN CHLORIDE 5 MG TABLET PO SCH ×2 (09:36→17:38)
[2017-02-11] MEDS: LITHIUM CARBONATE 300 MG CAPSULE PO SCH ×2 (09:38→17:38)
[2017-02-11 13:20] LABS: GLUCOSE,POINT OF CARE 90 MG/DL (70-110)
[2017-02-11 16:30] VITALS: BP 124/78
[2017-02-11] MEDS ORDERED: OXYBUTYNIN CHLORIDE 5 MG TABLET PO SCH ×2 (17:00)
[2017-02-11] MEDS ORDERED: ATORVASTATIN CALCIUM 40 MG TABLET PO SCH (21:00)
[2017-02-11] MEDS: ATORVASTATIN CALCIUM 40 MG TABLET PO SCH (21:55)
[2017-02-12 05:00] VITALS: BP 132/79
[2017-02-12] MEDS: ALBUTEROL SULFATE HFA 90 MCG/PUFF 8 GM INHALER IH PRN ×2 (05:33→20:00)
[2017-02-12] MEDS: MetFORMIN HCL 500 MG TABLET PO SCH ×2 (06:37→16:23)
[2017-02-12] MEDS: LEVOTHYROXINE SODIUM 100 MCG TABLET PO SCH (06:38)
[2017-02-12 08:03] LABS: GLUCOSE,POINT OF CARE 103 MG/DL (70-110)
[2017-02-12 08:42] VITALS: BP 138/89
[2017-02-12 09:11] LABS: GLUCOSE COMMENT 1 FASTING; GLUCOSE COMMENT 2 Received Meds; GLUCOSE,POINT OF CARE 99 MG/DL (70-110)
[2017-02-12] MEDS: LISINOPRIL 10 MG TABLET PO SCH (09:17)
[2017-02-12] MEDS: TOLTERODINE TARTRATE 2 MG ER CAPSULE PO SCH (09:17)
[2017-02-12] MEDS: LITHIUM CARBONATE 300 MG CAPSULE PO SCH ×2 (09:17→16:23)
[2017-02-12] MEDS: OXYBUTYNIN CHLORIDE 5 MG TABLET PO SCH ×2 (09:17→16:23)
[2017-02-12] MEDS: CHOLECALCIFEROL (VIT D3) 1,000 UNITS TABLET PO SCH (09:17)
[2017-02-12] MEDS: RisperiDONE 3 MG TABLET PO SCH ×2 (09:17→16:23)
[2017-02-12] MEDS: DIVALPROEX SODIUM 500 MG DR TABLET PO SCH ×2 (09:17→16:23)
[2017-02-12] MEDS: HYDROCHLOROTHIAZIDE 25 MG TABLET PO SCH (09:18)
[2017-02-12] MEDS: OMEPRAZOLE 20 MG CAPSULE PO SCH (09:19)
[2017-02-12 09:20] LABS: GLUCOSE COMMENT 1 FASTING; GLUCOSE,POINT OF CARE 147 MG/DL (70-110)
[2017-02-12 12:28] LABS: GLUCOSE,POINT OF CARE 93 MG/DL (70-110)
[2017-02-12] MEDS: LORazepam 2 MG TABLET PO PRN (13:09)
[2017-02-12] MEDS: HALOPERIDOL 5 MG TABLET PO PRN (13:09)
[2017-02-12 16:42] LABS: GLUCOSE,POINT OF CARE 102 MG/DL (70-110)
[2017-02-12 17:50] VITALS: BP 130/80
[2017-02-12] MEDS: ATORVASTATIN CALCIUM 40 MG TABLET PO SCH (20:40)
[2017-02-12 21:07] LABS: GLUCOSE,POINT OF CARE 114 MG/DL (70-110)
[2017-02-13 05:38] LABS: GLUCOSE COMMENT 1 Received Meds; GLUCOSE,POINT OF CARE 104 MG/DL (70-110)
[2017-02-13] MEDS: LEVOTHYROXINE SODIUM 100 MCG TABLET PO SCH (06:46)
[2017-02-13] MEDS: MetFORMIN HCL 500 MG TABLET PO SCH ×2 (06:47→18:05)
[2017-02-13 08:00] VITALS: BP 119/86
[2017-02-13] MEDS: DIVALPROEX SODIUM 500 MG DR TABLET PO SCH ×2 (09:49→16:37)
[2017-02-13] MEDS: LISINOPRIL 10 MG TABLET PO SCH (09:49)
[2017-02-13] MEDS: TOLTERODINE TARTRATE 2 MG ER CAPSULE PO SCH (09:49)
[2017-02-13] MEDS: RisperiDONE 3 MG TABLET PO SCH ×2 (09:49→16:37)
[2017-02-13] MEDS: OMEPRAZOLE 20 MG CAPSULE PO SCH (09:49)
[2017-02-13] MEDS: OXYBUTYNIN CHLORIDE 5 MG TABLET PO SCH ×2 (09:49→16:37)
[2017-02-13] MEDS: LITHIUM CARBONATE 300 MG CAPSULE PO SCH ×2 (09:49→16:37)
[2017-02-13] MEDS: CHOLECALCIFEROL (VIT D3) 1,000 UNITS TABLET PO SCH (09:49)
[2017-02-13] MEDS: HYDROCHLOROTHIAZIDE 25 MG TABLET PO SCH (09:50)
[2017-02-13 12:02] LABS: GLUCOSE,POINT OF CARE 102 MG/DL (70-110)
[2017-02-13 16:00] VITALS: BP 121/74
[2017-02-13 16:42] LABS: GLUCOSE,POINT OF CARE 114 MG/DL (70-110)
[2017-02-13] MEDS: ATORVASTATIN CALCIUM 40 MG TABLET PO SCH (20:47)
[2017-02-13 20:57] LABS: GLUCOSE,POINT OF CARE 86 MG/DL (70-110)
[2017-02-14 05:57] LABS: GLUCOSE,POINT OF CARE 88 MG/DL (70-110)
[2017-02-14] MEDS: MetFORMIN HCL 500 MG TABLET PO SCH ×2 (07:01→17:24)
[2017-02-14] MEDS: LEVOTHYROXINE SODIUM 100 MCG TABLET PO SCH (07:01)
[2017-02-14 08:05] VITALS: BP 124/65
[2017-02-14] MEDS: LISINOPRIL 10 MG TABLET PO SCH (08:54)
[2017-02-14] MEDS: DIVALPROEX SODIUM 500 MG DR TABLET PO SCH ×2 (08:54→17:24)
[2017-02-14] MEDS: CHOLECALCIFEROL (VIT D3) 1,000 UNITS TABLET PO SCH (08:54)
[2017-02-14] MEDS: OMEPRAZOLE 20 MG CAPSULE PO SCH (08:54)
[2017-02-14] MEDS: LITHIUM CARBONATE 300 MG CAPSULE PO SCH ×2 (08:54→17:24)
[2017-02-14] MEDS: OXYBUTYNIN CHLORIDE 5 MG TABLET PO SCH ×2 (08:54→17:24)
[2017-02-14] MEDS: RisperiDONE 3 MG TABLET PO SCH ×2 (08:54→17:24)
[2017-02-14] MEDS: HYDROCHLOROTHIAZIDE 25 MG TABLET PO SCH (09:30)
[2017-02-14 11:27] LABS: GLUCOSE,POINT OF CARE 90 MG/DL (70-110)
[2017-02-14 16:15] VITALS: BP 123/63
[2017-02-14] MEDS: TOLTERODINE TARTRATE 2 MG ER CAPSULE PO SCH (17:25)
[2017-02-14 17:33] LABS: GLUCOSE COMMENT 1 FASTING; GLUCOSE COMMENT 2 Received Meds; GLUCOSE,POINT OF CARE 101 MG/DL (70-110)
[2017-02-14] MEDS: ATORVASTATIN CALCIUM 40 MG TABLET PO SCH (20:46)
[2017-02-14 22:52] LABS: GLUCOSE COMMENT 1 FASTING; GLUCOSE,POINT OF CARE 106 MG/DL (70-110)
[2017-02-15 05:57] LABS: GLUCOSE,POINT OF CARE 101 MG/DL (70-110)
[2017-02-15] MEDS: LEVOTHYROXINE SODIUM 100 MCG TABLET PO SCH (06:37)
[2017-02-15] MEDS: MetFORMIN HCL 500 MG TABLET PO SCH ×2 (06:37→16:29)
[2017-02-15 08:05] VITALS: BP 147/80
[2017-02-15] MEDS: LITHIUM CARBONATE 300 MG CAPSULE PO SCH ×2 (09:56→16:28)
[2017-02-15] MEDS: CHOLECALCIFEROL (VIT D3) 1,000 UNITS TABLET PO SCH (09:56)
[2017-02-15] MEDS: DIVALPROEX SODIUM 500 MG DR TABLET PO SCH ×2 (09:56→16:28)
[2017-02-15] MEDS: LISINOPRIL 10 MG TABLET PO SCH (09:57)
[2017-02-15] MEDS: HYDROCHLOROTHIAZIDE 25 MG TABLET PO SCH (09:57)
[2017-02-15] MEDS: TOLTERODINE TARTRATE 2 MG ER CAPSULE PO SCH (09:57)
[2017-02-15] MEDS: OMEPRAZOLE 20 MG CAPSULE PO SCH (09:57)
[2017-02-15] MEDS: RisperiDONE 3 MG TABLET PO SCH ×2 (09:57→16:28)
[2017-02-15] MEDS: OXYBUTYNIN CHLORIDE 5 MG TABLET PO SCH ×2 (09:58→16:28)
[2017-02-15 11:38] LABS: GLUCOSE,POINT OF CARE 87 MG/DL (70-110)
[2017-02-15 16:38] LABS: GLUCOSE COMMENT 1 FASTING; GLUCOSE COMMENT 2 Received Meds; GLUCOSE,POINT OF CARE 106 MG/DL (70-110)
[2017-02-15 16:45] VITALS: BP 103/65
[2017-02-15] MEDS: ATORVASTATIN CALCIUM 40 MG TABLET PO SCH (21:53)
[2017-02-16 06:18] LABS: GLUCOSE,POINT OF CARE 92 MG/DL (70-110)
[2017-02-16] MEDS: MetFORMIN HCL 500 MG TABLET PO SCH (07:04)
[2017-02-16] MEDS: LEVOTHYROXINE SODIUM 100 MCG TABLET PO SCH (07:04)
[2017-02-16 08:33] VITALS: BP 145/108
[2017-02-16] MEDS: OMEPRAZOLE 20 MG CAPSULE PO SCH (09:30)
[2017-02-16] MEDS: LITHIUM CARBONATE 300 MG CAPSULE PO SCH (09:30)
[2017-02-16] MEDS: RisperiDONE 3 MG TABLET PO SCH (09:31)
[2017-02-16] MEDS: LISINOPRIL 10 MG TABLET PO SCH (09:31)
[2017-02-16] MEDS: DIVALPROEX SODIUM 500 MG DR TABLET PO SCH (09:31)
[2017-02-16] MEDS: CHOLECALCIFEROL (VIT D3) 1,000 UNITS TABLET PO SCH (09:31)
[2017-02-16] MEDS: OXYBUTYNIN CHLORIDE 5 MG TABLET PO SCH (09:32)
[2017-02-16] MEDS: HYDROCHLOROTHIAZIDE 25 MG TABLET PO SCH (09:32)
[2017-02-16] MEDS: TOLTERODINE TARTRATE 2 MG ER CAPSULE PO SCH (09:33)
[2017-02-16 11:47] LABS: GLUCOSE,POINT OF CARE 84 MG/DL (70-110)
[2017-02-16] MEDS ORDERED: HYDR25TA PO (12:21)
== END 2017-02-16 15:30 | disposition home or self-care (01) | DRG 750 ==
LOC: EMS 16:55 → 3EI 19:00
DX: F25.1 Schizoaffective disorder, depressive type (principal); R45.851 Suicidal ideations; E11.9 Type 2 diabetes mellitus without complications; Z68.41 Body mass index [BMI] 40.0-44.9, adult; I10 Essential (primary) hypertension; B86 Scabies; J44.9 Chronic obstructive pulmonary disease, unspecified; E66.01 Morbid (severe) obesity due to excess calories; E03.9 Hypothyroidism, unspecified; F17.210 Nicotine dependence, cigarettes, uncomplicated; K21.9 Gastro-esophageal reflux disease without esophagitis; F31.9 Bipolar disorder, unspecified; F19.10 Other psychoactive substance abuse, uncomplicated; E78.5 Hyperlipidemia, unspecified; R32 Unspecified urinary incontinence; Z88.1 Allergy status to other antibiotic agents; Z88.2 Allergy status to sulfonamides; Z79.899 Other long term (current) drug therapy; Z91.5 Personal history of self-harm
CPT/HCPCS: 82962; 84443; 87081; 99285; 99406; G0480; J3535

== ENCOUNTER 2017-03-20 19:19 | Inpatient (IN) | payer MEDICAID, OTHER ==
[~2017-03-20] VITALS: Ht 190.5 cm; Wt 160.1 kg
[~2017-03-20 19:19] MED LIST changes: -ALBU8.5H8 IH; +HYDR25TA PO
[2017-03-20 19:57] LABS: GLUCOSE,POINT OF CARE 135 MG/DL (70-110)
[2017-03-20 20:15] LABS: ANION GAP 2 mmol/L (8-16); CALCIUM, TOTAL 8.6 mg/dL (8.8-10.5); CARBON DIOXIDE 31 mmol/L (22-29); CHLORIDE 100 mmol/L (98-107); CREATININE 0.98 mg/dL (0.60-1.30); GLOMERULAR FILTR. RATE CALC > 60 mL/min (>60); POTASSIUM 4.2 mmol/L (3.5-5.1); SODIUM SERUM 133 mmol/L (136-145); UREA NITROGEN, BLOOD 15 mg/dL (7-18)
[2017-03-20 20:21] LABS: ALANINE AMINOTRANSFERASE 38 U/L (12-78); ALBUMIN 3.4 g/dL (3.4-5.0); ASPARTATE AMINOTRANSFERASE 18 U/L (15-37); BILIRUBIN,TOTAL 0.3 mg/dL (0.1-1.0); TOTAL PROTEIN, SERUM 7.4 g/dL (6.4-8.2)
[2017-03-20 20:37] LABS: VALPROIC ACID < 3 mcg/mL (50-100)
[2017-03-20 20:46] LABS: BASOPHILS % (AUTO) 0.5 % (0.0-2.0); EOSINOPHILS % (AUTO) 3.7 % (1.0-6.0); HEMATOCRIT 38.1 % (41-53); HEMOGLOBIN 12.7 g/dL (13.5-17.5); LYMPHOCYTES # (AUTO) 1.8 K/uL (1.0-4.8); LYMPHOCYTES % (AUTO) 28.8 % (22.0-44.0); MEAN CORPUSCULAR HEMOGLOBIN 28.9 pg (26.0-34.0); MEAN CORPUSCULAR HGB CONC 33.3 G/dL (31.0-37.0); MEAN CORPUSCULAR VOLUME 87 fL (80-100); MONOCYTES # (AUTO) 0.6 K/uL (0.1-1.0); MONOCYTES % (AUTO) 9.1 % (2.0-9.0); NEUTROPHILS # (AUTO) 3.7 K/uL (1.8-7.7); NEUTROPHILS % (AUTO) 57.9 % (40.0-70.0); PLATELET COUNT (AUTO) 240 K/uL (150-450); RED CELL DISTRIBUTION WIDTH 14.9 % (11.5-14.5); WHITE BLOOD COUNT (AUTO) 6.4 K/uL (4.5-11.0)
[2017-03-20] MEDS ORDERED: GLUCAGON,HUMAN RECOMBINANT 1 MG VIAL IM PRN (23:45)
[2017-03-20] MEDS ORDERED: ZOLPIDEM TARTRATE 10 MG TABLET PO PRN (23:45)
[2017-03-20] MEDS ORDERED: HALOPERIDOL 5 MG TABLET PO PRN (23:45)
[2017-03-20] MEDS ORDERED: LORazepam 2 MG TABLET PO PRN (23:45)
[2017-03-21 01:10] VITALS: BP 148/102
[2017-03-21 01:13] VITALS: BP 148/102
[2017-03-21 01:54] VITALS: BP 148/102
[2017-03-21 06:08] LABS: GLUCOSE COMMENT 1 Received Meds; GLUCOSE,POINT OF CARE 142 MG/DL (70-110)
[2017-03-21 06:46] LABS: CHOL/HDL RATIO 4.6 (4.2-7.3)
[2017-03-21] MEDS: INSULIN REGULAR, HUMAN 100 UNITS/ML SQ PRN (06:51)
[2017-03-21 08:30] VITALS: BP 134/84
[2017-03-21 11:32] LABS: GLUCOSE,POINT OF CARE 113 MG/DL (70-110)
[2017-03-21 16:00] VITALS: BP 144/81
[2017-03-21] MEDS: RisperiDONE 3 MG TABLET PO SCH (16:26)
[2017-03-21] MEDS: DIVALPROEX SODIUM 500 MG DR TABLET PO SCH (16:27)
[2017-03-21 16:32] LABS: GLUCOSE,POINT OF CARE 126 MG/DL (70-110)
[2017-03-21 21:47] LABS: GLUCOSE,POINT OF CARE 107 MG/DL (70-110)
[2017-03-22 03:39] VITALS: BP 152/101
[2017-03-22 05:58] LABS: GLUCOSE,POINT OF CARE 115 MG/DL (70-110)
[2017-03-22 08:12] VITALS: BP 137/79
[2017-03-22] MEDS: RisperiDONE 3 MG TABLET PO SCH ×2 (08:59→16:26)
[2017-03-22] MEDS: DIVALPROEX SODIUM 500 MG DR TABLET PO SCH ×2 (08:59→16:26)
[2017-03-22 11:43] LABS: GLUCOSE,POINT OF CARE 94 MG/DL (70-110)
[2017-03-22] MEDS ORDERED: IBUPROFEN 400 MG TABLET PO PRN (13:45)
[2017-03-22] MEDS ORDERED: ACETAMINOPHEN 325 MG TABLET PO PRN (13:45)
[2017-03-22] MEDS: OXYBUTYNIN CHLORIDE 5 MG TABLET PO SCH (16:26)
[2017-03-22 16:32] LABS: GLUCOSE,POINT OF CARE 111 MG/DL (70-110)
[2017-03-22] MEDS: MetFORMIN HCL 500 MG TABLET PO SCH (17:47)
[2017-03-22 19:56] VITALS: BP 151/109
[2017-03-22] MEDS: ATORVASTATIN CALCIUM 40 MG TABLET PO SCH (21:05)
[2017-03-22 21:18] LABS: GLUCOSE,POINT OF CARE 112 MG/DL (70-110)
[2017-03-23 05:48] LABS: GLUCOSE,POINT OF CARE 96 MG/DL (70-110)
[2017-03-23] MEDS: MetFORMIN HCL 500 MG TABLET PO SCH ×2 (06:47→17:32)
[2017-03-23] MEDS: LEVOTHYROXINE SODIUM 100 MCG TABLET PO SCH (06:47)
[2017-03-23 09:12] LABS: APPEARANCE,URINE CLEAR (CLEAR); GLUCOSE, URINE (UA) NEGATIVE (NEGATIVE); KETONES,URINE TRACE mg/dL (NEGATIVE); LEUKOCYTE ESTERASE ,URINE NEGATIVE (NEGATIVE); OCCULT BLOOD,URINE NEGATIVE (NEGATIVE); PROTEIN,URINE NEGATIVE (NEGATIVE)
[2017-03-23 09:14] LABS: ADD UA MICROSCOPIC NO
[2017-03-23 09:39] VITALS: BP 140/92
[2017-03-23] MEDS: RisperiDONE 3 MG TABLET PO SCH ×2 (10:17→17:33)
[2017-03-23] MEDS: DIVALPROEX SODIUM 500 MG DR TABLET PO SCH ×2 (10:17→17:32)
[2017-03-23] MEDS: CHOLECALCIFEROL (VIT D3) 1,000 UNITS TABLET PO SCH (10:17)
[2017-03-23] MEDS: OMEPRAZOLE 20 MG CAPSULE PO SCH (10:18)
[2017-03-23] MEDS: OXYBUTYNIN CHLORIDE 5 MG TABLET PO SCH ×2 (10:18→17:33)
[2017-03-23] MEDS: TOLTERODINE TARTRATE 2 MG ER CAPSULE PO SCH (10:18)
[2017-03-23] MEDS: LISINOPRIL 5 MG TABLET PO SCH (10:19)
[2017-03-23 11:38] LABS: GLUCOSE,POINT OF CARE 84 MG/DL (70-110)
[2017-03-23 16:32] LABS: GLUCOSE,POINT OF CARE 123 MG/DL (70-110)
[2017-03-23 16:58] VITALS: BP 118/77
[2017-03-23] MEDS: ATORVASTATIN CALCIUM 40 MG TABLET PO SCH (21:16)
[2017-03-23 21:48] LABS: GLUCOSE,POINT OF CARE 125 MG/DL (70-110)
[2017-03-24 05:45] VITALS: BP 138/95
[2017-03-24 05:58] LABS: GLUCOSE,POINT OF CARE 94 MG/DL (70-110)
[2017-03-24] MEDS: INSULIN REGULAR, HUMAN 100 UNITS/ML SQ PRN (06:41)
[2017-03-24] MEDS: LEVOTHYROXINE SODIUM 100 MCG TABLET PO SCH (06:51)
[2017-03-24] MEDS: MetFORMIN HCL 500 MG TABLET PO SCH ×2 (06:51→16:26)
[2017-03-24] MEDS: DIVALPROEX SODIUM 500 MG DR TABLET PO SCH ×2 (08:08→16:26)
[2017-03-24] MEDS: TOLTERODINE TARTRATE 2 MG ER CAPSULE PO SCH (08:08)
[2017-03-24] MEDS: OXYBUTYNIN CHLORIDE 5 MG TABLET PO SCH ×2 (08:08→16:26)
[2017-03-24] MEDS: RisperiDONE 3 MG TABLET PO SCH ×2 (08:08→16:26)
[2017-03-24] MEDS: OMEPRAZOLE 20 MG CAPSULE PO SCH (08:08)
[2017-03-24] MEDS: CHOLECALCIFEROL (VIT D3) 1,000 UNITS TABLET PO SCH (08:09)
[2017-03-24] MEDS: LISINOPRIL 5 MG TABLET PO SCH (08:09)
[2017-03-24 08:57] VITALS: BP 130/85
[2017-03-24 11:23] LABS: GLUCOSE,POINT OF CARE 127 MG/DL (70-110)
[2017-03-24 16:00] VITALS: BP 136/66
[2017-03-24 16:58] LABS: GLUCOSE COMMENT 1 Received Meds; GLUCOSE,POINT OF CARE 117 MG/DL (70-110)
[2017-03-24] MEDS: ATORVASTATIN CALCIUM 40 MG TABLET PO SCH (20:47)
[2017-03-25 06:25] VITALS: BP 137/67
[2017-03-25] MEDS: MetFORMIN HCL 500 MG TABLET PO SCH (06:39)
[2017-03-25] MEDS: LEVOTHYROXINE SODIUM 100 MCG TABLET PO SCH (06:39)
[2017-03-25 06:43] LABS: GLUCOSE,POINT OF CARE 106 MG/DL (70-110)
[2017-03-25 08:30] VITALS: BP 156/98
[2017-03-25] MEDS ORDERED: LISI-660 PO (09:30)
[2017-03-25] MEDS: CHOLECALCIFEROL (VIT D3) 1,000 UNITS TABLET PO SCH (10:17)
[2017-03-25] MEDS: LISINOPRIL 5 MG TABLET PO SCH (10:18)
[2017-03-25] MEDS: OMEPRAZOLE 20 MG CAPSULE PO SCH (10:19)
[2017-03-25] MEDS: TOLTERODINE TARTRATE 2 MG ER CAPSULE PO SCH (10:19)
[2017-03-25] MEDS: RisperiDONE 3 MG TABLET PO SCH (10:19)
[2017-03-25] MEDS: OXYBUTYNIN CHLORIDE 5 MG TABLET PO SCH (10:19)
[2017-03-25] MEDS: DIVALPROEX SODIUM 500 MG DR TABLET PO SCH (10:19)
== END 2017-03-25 11:20 | disposition home or self-care (01) | DRG 750 ==
LOC: EMS 19:21 → 3EI 21:30
DX: F25.1 Schizoaffective disorder, depressive type (principal); R45.851 Suicidal ideations; E11.9 Type 2 diabetes mellitus without complications; I10 Essential (primary) hypertension; F15.10 Other stimulant abuse, uncomplicated; D64.9 Anemia, unspecified; J44.9 Chronic obstructive pulmonary disease, unspecified; E03.9 Hypothyroidism, unspecified; E78.5 Hyperlipidemia, unspecified; F31.9 Bipolar disorder, unspecified; F60.9 Personality disorder, unspecified; G47.30 Sleep apnea, unspecified; K21.9 Gastro-esophageal reflux disease without esophagitis; R32 Unspecified urinary incontinence; Z79.899 Other long term (current) drug therapy; Z87.891 Personal history of nicotine dependence; Z88.2 Allergy status to sulfonamides; F19.10 Other psychoactive substance abuse, uncomplicated
CPT/HCPCS: 82962; 99285; G0480

== ENCOUNTER 2017-09-02 16:18 | Inpatient (IN) | payer MEDICAID, OTHER ==
[~2017-09-02] VITALS: Ht 193 cm; Wt 166.0 kg
[~2017-09-02 16:18] MED LIST changes: -HYDR25TA PO; +LISI-660 PO; -LISI1TAB9 PO; -LITH300C3 PO; -METF500T4 PO; +METF500T6 PO
[2017-09-02 16:48] LABS: GLUCOSE,POINT OF CARE 128 MG/DL (70-110)
[2017-09-02] MEDS ORDERED: DIVA500T52 PO (16:55)
[2017-09-02] MEDS ORDERED: NICO-800 TD (16:55)
[2017-09-02] MEDS ORDERED: LEVO200 PO (16:55)
[2017-09-02] MEDS ORDERED: ATOR20TA86 PO (16:55)
[2017-09-02] MEDS ORDERED: MONT10TA21 PO (16:55)
[2017-09-02] MEDS ORDERED: AMLO-512 PO (16:55)
[2017-09-02] MEDS ORDERED: RISP4 PO (16:55)
[2017-09-02] MEDS ORDERED: LISI-661 PO (16:55)
[2017-09-02] MEDS ORDERED: FAMO20 PO (16:55)
[2017-09-02] MEDS ORDERED: FURO40 PO (16:55)
[2017-09-02] MEDS ORDERED: COMBISP IH (16:55)
[2017-09-02] MEDS ORDERED: ADV250 IH (16:55)
[2017-09-02] MEDS ORDERED: CHLO100T24 PO (16:55)
[2017-09-02] MEDS ORDERED: ASPI81 PO (16:55)
[2017-09-02] MEDS ORDERED: TIOT185 IH (16:55)
[2017-09-02 17:31] LABS: BASOPHILS % (AUTO) 0.4 % (0.0-2.0); EOSINOPHILS % (AUTO) 2.8 % (1.0-6.0); HEMATOCRIT 39.9 % (41-53); HEMOGLOBIN 12.9 g/dL (13.5-17.5); LYMPHOCYTES # (AUTO) 1.3 K/uL (1.0-4.8); LYMPHOCYTES % (AUTO) 28.9 % (22.0-44.0); MEAN CORPUSCULAR HGB CONC 32.3 G/dL (31.0-37.0); MEAN CORPUSCULAR VOLUME 87 fL (80-100); MONOCYTES # (AUTO) 0.7 K/uL (0.1-1.0); MONOCYTES % (AUTO) 15.1 % (2.0-9.0); NEUTROPHILS # (AUTO) 2.4 K/uL (1.8-7.7); NEUTROPHILS % (AUTO) 52.8 % (40.0-70.0); PLATELET COUNT (AUTO) 150 K/uL (150-450); RED BLOOD CELL COUNT(AUTO) 4.61 MIL/uL (4.50-5.90); RED CELL DISTRIBUTION WIDTH 16.6 % (11.5-14.5)
[2017-09-02 18:00] LABS: ANION GAP -1 mmol/L (8-16); CALCIUM, TOTAL 8.5 mg/dL (8.8-10.5); CARBON DIOXIDE 40 mmol/L (22-29); CHLORIDE 99 mmol/L (98-107); CREATININE 0.97 mg/dL (0.60-1.30); GLOMERULAR FILTR. RATE CALC > 60 mL/min (>60); GLUCOSE,RANDOM 112 mg/dL (70-110); POTASSIUM 4.2 mmol/L (3.5-5.1); SODIUM SERUM 138 mmol/L (136-145); UREA NITROGEN, BLOOD 11 mg/dL (7-18)
[2017-09-02 18:14] LABS: ALANINE AMINOTRANSFERASE 23 U/L (12-78); ALBUMIN 3.2 g/dL (3.4-5.0); ALKALINE PHOSPHATASE 57 U/L (46-116); ASPARTATE AMINOTRANSFERASE 14 U/L (15-37); BILIRUBIN,TOTAL 0.4 mg/dL (0.1-1.0); TOTAL PROTEIN, SERUM 6.7 g/dL (6.4-8.2); VALPROIC ACID 80 mcg/mL (50-100)
[2017-09-02] MEDS ORDERED: ACETAMINOPHEN 500 MG TABLET PO ONE (18:30)
[2017-09-02 18:55] LABS: AMPHET/METH SCREEN,URINE NEGATIVE (NEGATIVE); BARBITURATE SCREEN, URINE NEGATIVE (NEGATIVE); BENZODIAZEPINES SCREEN,URINE NEGATIVE (NEGATIVE); CANNABINOID SCREEN,URINE NEGATIVE (NEGATIVE); COCAINE SCREEN,URINE NEGATIVE (NEGATIVE); METHADONE SCREEN, URINE NEGATIVE (NEGATIVE); OPIATE SCREEN,URINE NEGATIVE (NEGATIVE)
[2017-09-02 18:57] LABS: APPEARANCE,URINE CLEAR (CLEAR); GLUCOSE, URINE (UA) NEGATIVE (NEGATIVE); KETONES,URINE TRACE mg/dL (NEGATIVE); LEUKOCYTE ESTERASE ,URINE TRACE (NEGATIVE); NITRATE,URINE NEGATIVE (NEGATIVE); OCCULT BLOOD,URINE NEGATIVE (NEGATIVE); PROTEIN,URINE TRACE (NEGATIVE)
[2017-09-02 18:59] LABS: BILIRUBIN,URINE PRELIM. POSITIVE (NEGATIVE)
[2017-09-02 19:09] LABS: BACTERIA,URINE Few /HPF (None Seen); RBC,URINE 0-2 /HPF (0-2)
[2017-09-02 19:10] LABS: SQUAMOUS EPITHELIAL CELL,UR Few /LPF (None Seen)
[2017-09-02 19:14] LABS: PHENCYCLIDINE SCREEN,URINE NEGATIVE (NEGATIVE)
[2017-09-02] MEDS ORDERED: IPRATROPIUM BROMIDE 0.5 MG/2.5 ML NEB SOLUTION NEB ONE ×2 (19:45→20:45)
[2017-09-02] MEDS ORDERED: ALBUTEROL SULFATE 2.5 MG/0.5 ML NEB SOLUTION NEB ONE (19:45)
[2017-09-02] MEDS ORDERED: HALOPERIDOL 5 MG TABLET PO ONE (19:45)
[2017-09-02] MEDS ORDERED: ZOLPIDEM TARTRATE 10 MG TABLET PO PRN (20:15)
[2017-09-02] MEDS ORDERED: HALOPERIDOL 5 MG TABLET PO PRN (20:15)
[2017-09-02] MEDS ORDERED: LORazepam 2 MG TABLET PO PRN (20:15)
[2017-09-02 20:28] LABS: GLUCOSE,POINT OF CARE 87 MG/DL (70-110)
[2017-09-02] MEDS ORDERED: ALBUTEROL SULFATE 5 MG/ML 20 ML NEB SOLN [BULK] NEB ONE (20:45)
[2017-09-02] MEDS ORDERED: MethylPREDNISolone SOD SUCC 125 MG/2 ML VIAL IVP ONE (20:45)
[2017-09-02] MEDS ORDERED: 0.9% SODIUM CHLORIDE 15 ML NEB SOLUTION NEB ONE (20:47)
[2017-09-02] MEDS ORDERED: ACETAMINOPHEN 325 MG TABLET PO PRN ×2 (21:15→21:30)
[2017-09-02] MEDS ORDERED: 0.9% SODIUM CHLORIDE 10 ML SYRINGE IVP PRN (21:15)
[2017-09-02] MEDS ORDERED: MORPHINE SULFATE 2 MG/ML SYRINGE IVP PRN (21:30)
[2017-09-02] MEDS ORDERED: ONDANSETRON HCL 4 MG/2 ML VIAL IVP PRN (21:30)
[2017-09-02] MEDS ORDERED: ALBUTEROL SULFATE 2.5 MG/0.5 ML NEB SOLUTION NEB PRN (21:30)
[2017-09-02] MEDS ORDERED: BISACODYL 10 MG RECTAL RECTAL SUPPOSITORY PR PRN (21:30)
[2017-09-02] MEDS ORDERED: HYDROCODONE/ACETAMINOPHEN 5-325 MG TABLET PO PRN (21:30)
[2017-09-02] MEDS ORDERED: IPRATROPIUM BROMIDE 0.5 MG/2.5 ML NEB SOLUTION NEB PRN (21:30)
[2017-09-02] MEDS ORDERED: MAGNESIUM HYDROXIDE SUSPENSION 30 ML UDCUP PO PRN (21:30)
[2017-09-02] MEDS ORDERED: MORPHINE SULFATE 4 MG/ML SYRINGE IVP PRN (22:14)
[2017-09-02] MEDS: AZITHROMYCIN 500 MG/NS 250 ML IV SCH (22:59)
[2017-09-02] MEDS ORDERED: IPRATROPIUM BROMIDE 0.5 MG/2.5 ML NEB SOLUTION NEB SCH (23:00)
[2017-09-02] MEDS ORDERED: ALBUTEROL SULFATE 2.5 MG/0.5 ML NEB SOLUTION NEB SCH (23:00)
[2017-09-02] MEDS ORDERED: SODIUM CHLORIDE 0.9% 500 ML IV ONE (23:18)
[2017-09-03] VITALS (7 sets, daily range): BP systolic 101–131; BP diastolic 53–74
[2017-09-03] MEDS: MethylPREDNISolone SOD SUCC 125 MG/2 ML VIAL IVP SCH ×4 (00:10→11:47)
[2017-09-03] MEDS: HEPARIN SODIUM,PORCINE 5,000 UNITS/ML VIAL SQ SCH ×4 (00:11→23:38)
[2017-09-03] MEDS ORDERED: PNEUMOCOCCAL VACCINE POLYVALENT 0.5 ML VIAL [PPSV23] IM ONE (01:00)
[2017-09-03] MEDS: ALBUTEROL SULFATE 2.5 MG/0.5 ML NEB SOLUTION NEB SCH ×4 (02:00→21:23)
[2017-09-03] MEDS: IPRATROPIUM BROMIDE 0.5 MG/2.5 ML NEB SOLUTION NEB SCH ×4 (02:01→21:23)
[2017-09-03] MEDS: LEVOTHYROXINE SODIUM 200 MCG TABLET PO SCH (06:17)
[2017-09-03 06:26] LABS: BASOPHILS % (AUTO) 0.1 % (0.0-2.0); EOSINOPHILS % (AUTO) 0.1 % (1.0-6.0); HEMATOCRIT 42.9 % (41-53); LYMPHOCYTES # (AUTO) 0.5 K/uL (1.0-4.8); LYMPHOCYTES % (AUTO) 10.5 % (22.0-44.0); MEAN CORPUSCULAR HEMOGLOBIN 28.7 pg (26.0-34.0); MEAN CORPUSCULAR HGB CONC 32.7 G/dL (31.0-37.0); MEAN CORPUSCULAR VOLUME 88 fL (80-100); MONOCYTES # (AUTO) 0.1 K/uL (0.1-1.0); MONOCYTES % (AUTO) 1.6 % (2.0-9.0); NEUTROPHILS # (AUTO) 3.9 K/uL (1.8-7.7); PLATELET COUNT (AUTO) 152 K/uL (150-450); RED BLOOD CELL COUNT(AUTO) 4.89 MIL/uL (4.50-5.90); RED CELL DISTRIBUTION WIDTH 16.5 % (11.5-14.5)
[2017-09-03 06:37] LABS: ALANINE AMINOTRANSFERASE 26 U/L (12-78); ALBUMIN 3.4 g/dL (3.4-5.0); ALKALINE PHOSPHATASE 64 U/L (46-116); ANION GAP 4 mmol/L (8-16); ASPARTATE AMINOTRANSFERASE 15 U/L (15-37); BILIRUBIN,TOTAL 0.4 mg/dL (0.1-1.0); CALCIUM, TOTAL 8.5 mg/dL (8.8-10.5); CARBON DIOXIDE 36 mmol/L (22-29); CHLORIDE 97 mmol/L (98-107); GLOMERULAR FILTR. RATE CALC > 60 mL/min (>60); GLUCOSE,RANDOM 204 mg/dL (70-110); POTASSIUM 4.6 mmol/L (3.5-5.1); SODIUM SERUM 137 mmol/L (136-145); TOTAL PROTEIN, SERUM 7.4 g/dL (6.4-8.2); UREA NITROGEN, BLOOD 10 mg/dL (7-18)
[2017-09-03 06:46] LABS: NEUTROPHILS % (AUTO) 87.7 % (40.0-70.0)
[2017-09-03] MEDS: ATORVASTATIN CALCIUM 20 MG TABLET PO SCH (08:54)
[2017-09-03] MEDS: ASPIRIN 81 MG CHEWABLE TABLET PO SCH (08:54)
[2017-09-03] MEDS: FUROSEMIDE 40 MG TABLET PO SCH ×2 (08:54→21:12)
[2017-09-03] MEDS: BENZONATATE 100 MG CAPSULE PO SCH ×3 (08:54→21:12)
[2017-09-03] MEDS: PANTOPRAZOLE SODIUM 40 MG DR TABLET PO SCH (08:54)
[2017-09-03] MEDS: AmLODIPine BESYLATE 10 MG TABLET PO SCH (08:54)
[2017-09-03] MEDS: DOCUSATE SODIUM 100 MG CAPSULE PO SCH ×2 (08:54→21:12)
[2017-09-03] MEDS: DIVALPROEX SODIUM 500 MG ER TABLET PO SCH ×2 (08:55→21:12)
[2017-09-03] MEDS: GuaiFENesin SR 600 MG ER TABLET PO SCH ×2 (08:55→21:12)
[2017-09-03] MEDS: FLUTICASONE/VILANTEROL 200-25 MCG/INH INHALER [14] IH SCH (08:57)
[2017-09-03] MEDS: LISINOPRIL 10 MG TABLET PO SCH (08:57)
[2017-09-03] MEDS: TIOTROPIUM BROMIDE 18 MCG/INH HANDIHALER [5] IH SCH (09:27)
[2017-09-03 15:17] LABS: GLUCOMETER DEV NAME(LOC) 5N 2S; GLUCOSE,POINT OF CARE 199 MG/DL (70-110)
[2017-09-03] MEDS: MethylPREDNISolone SOD SUCC 40 MG/ML VIAL IVP SCH ×2 (17:50→23:38)
[2017-09-03 19:58] LABS: GLUCOMETER DEV NAME(LOC) 5S 1M; GLUCOSE,POINT OF CARE 222 MG/DL (70-110)
[2017-09-03 20:50] LABS: ABG A-A DIFF O2 65.3 mmHg (10-20.0); ABG BASE EXCESS 11.2 mmol/L (-2.0-3.0); ABG CARBOXYHEMOGLOBIN 2.9 % (0.0-1.5); ABG HCO3 31.3 mmol/L (22.0-26.0); ABG METHEMOGLOBIN 0.5 % (0.0-1.5); ABG OXYGEN CONTENT 17.5 mL/dL (15.0-23.0); ABG OXYGEN SATURATION 88.6 % (95.0-98.0); ABG OXYHEMOGLOBIN 85.6 % (94.0-100.0); ABG TOTAL HEMOGLOBIN 14.5 G/dL (12.0-18.0); PO2, ARTERIAL BG 66.3 mmHg (84.0-92.0); SOURCE, BLOOD GAS ARTERIAL; TEMPERATURE, FAHRENHEIT, BG 98.6 FAHREN (96.0-98.6)
[2017-09-03 20:51] LABS: ABG PCO2 83 mmHg (35-45); O2 DEVICE,BLOOD GAS CANNULA (ROOM AIR); SITE, BLOOD GAS RT RADIAL
[2017-09-03] MEDS: MONTELUKAST SODIUM 10 MG TABLET PO SCH (21:12)
[2017-09-03] MEDS: ChlorproMAZINE HCL 100 MG TABLET PO SCH (21:12)
[2017-09-03] MEDS: RisperiDONE 4 MG TABLET PO SCH (21:12)
[2017-09-03] MEDS: AZITHROMYCIN 500 MG/NS 250 ML IV SCH (21:12)
[2017-09-03 22:37] LABS: ABG A-A DIFF O2 70.6 mmHg (10-20.0); ABG BASE EXCESS 4.5 mmol/L (-2.0-3.0); ABG CARBOXYHEMOGLOBIN 2.5 % (0.0-1.5); ABG HCO3 27.6 mmol/L (22.0-26.0); ABG METHEMOGLOBIN 0.3 % (0.0-1.5); ABG OXYGEN CONTENT 18.7 mL/dL (15.0-23.0); ABG OXYGEN SATURATION 96.3 % (95.0-98.0); ABG OXYHEMOGLOBIN 93.6 % (94.0-100.0); ABG PCO2 49 mmHg (35-45); ABG PH 7.394 (7.35-7.450); ABG TOTAL HEMOGLOBIN 14.2 G/dL (12.0-18.0); PO2, ARTERIAL BG 85.4 mmHg (84.0-92.0); SOURCE, BLOOD GAS ARTERIAL; TEMPERATURE, FAHRENHEIT, BG 98.6 FAHREN (96.0-98.6)
[2017-09-03 22:38] LABS: O2 DEVICE,BLOOD GAS BIPAP (ROOM AIR); SITE, BLOOD GAS RT RADIAL
[2017-09-04] MEDS: IPRATROPIUM BROMIDE 0.5 MG/2.5 ML NEB SOLUTION NEB SCH ×4 (02:36→19:15)
[2017-09-04] MEDS: ALBUTEROL SULFATE 2.5 MG/0.5 ML NEB SOLUTION NEB SCH ×4 (02:36→19:15)
[2017-09-04 04:25] VITALS: BP 117/79
[2017-09-04] MEDS: LEVOTHYROXINE SODIUM 200 MCG TABLET PO SCH (06:04)
[2017-09-04] MEDS: MethylPREDNISolone SOD SUCC 40 MG/ML VIAL IVP SCH (06:10)
[2017-09-04 07:21] VITALS: BP 117/68
[2017-09-04] MEDS: DIVALPROEX SODIUM 500 MG ER TABLET PO SCH ×2 (08:11→20:42)
[2017-09-04] MEDS: FUROSEMIDE 40 MG TABLET PO SCH ×2 (08:11→20:42)
[2017-09-04] MEDS: AmLODIPine BESYLATE 10 MG TABLET PO SCH (08:11)
[2017-09-04] MEDS: LISINOPRIL 10 MG TABLET PO SCH (08:12)
[2017-09-04] MEDS: ATORVASTATIN CALCIUM 20 MG TABLET PO SCH (08:12)
[2017-09-04] MEDS: GuaiFENesin SR 600 MG ER TABLET PO SCH ×2 (08:12→20:42)
[2017-09-04] MEDS: PANTOPRAZOLE SODIUM 40 MG DR TABLET PO SCH (08:12)
[2017-09-04] MEDS: ASPIRIN 81 MG CHEWABLE TABLET PO SCH (08:12)
[2017-09-04] MEDS: DOCUSATE SODIUM 100 MG CAPSULE PO SCH ×2 (08:12→20:42)
[2017-09-04] MEDS: BENZONATATE 100 MG CAPSULE PO SCH ×3 (08:12→20:43)
[2017-09-04] MEDS: TIOTROPIUM BROMIDE 18 MCG/INH HANDIHALER [5] IH SCH (08:13)
[2017-09-04] MEDS: FLUTICASONE/VILANTEROL 200-25 MCG/INH INHALER [14] IH SCH (08:13)
[2017-09-04] MEDS: HEPARIN SODIUM,PORCINE 5,000 UNITS/ML VIAL SQ SCH ×2 (08:13→16:47)
[2017-09-04 11:02] VITALS: BP 112/66
[2017-09-04] MEDS: MethylPREDNISolone SOD SUCC 125 MG/2 ML VIAL IVP SCH ×2 (13:37→16:52)
[2017-09-04 15:09] VITALS: BP 120/62
[2017-09-04 20:14] VITALS: BP 129/74
[2017-09-04] MEDS: MONTELUKAST SODIUM 10 MG TABLET PO SCH (20:42)
[2017-09-04] MEDS: RisperiDONE 4 MG TABLET PO SCH (20:42)
[2017-09-04] MEDS: ChlorproMAZINE HCL 100 MG TABLET PO SCH (20:43)
[2017-09-04] MEDS: AZITHROMYCIN 500 MG/NS 250 ML IV SCH (20:44)
[2017-09-05] MEDS: MethylPREDNISolone SOD SUCC 125 MG/2 ML VIAL IVP SCH ×5 (00:12→23:56)
[2017-09-05] MEDS: HEPARIN SODIUM,PORCINE 5,000 UNITS/ML VIAL SQ SCH ×4 (00:12→23:56)
[2017-09-05 00:44] VITALS: BP 105/59
[2017-09-05] MEDS: IPRATROPIUM BROMIDE 0.5 MG/2.5 ML NEB SOLUTION NEB SCH ×4 (01:19→19:59)
[2017-09-05] MEDS: ALBUTEROL SULFATE 2.5 MG/0.5 ML NEB SOLUTION NEB SCH ×4 (01:19→19:59)
[2017-09-05 05:50] VITALS: BP 137/74
[2017-09-05] MEDS: LEVOTHYROXINE SODIUM 200 MCG TABLET PO SCH (06:17)
[2017-09-05 07:28] VITALS: BP 122/72
[2017-09-05] MEDS: PANTOPRAZOLE SODIUM 40 MG DR TABLET PO SCH (08:48)
[2017-09-05] MEDS: TIOTROPIUM BROMIDE 18 MCG/INH HANDIHALER [5] IH SCH (08:48)
[2017-09-05] MEDS: FUROSEMIDE 40 MG TABLET PO SCH ×2 (08:48→19:43)
[2017-09-05] MEDS: LISINOPRIL 10 MG TABLET PO SCH (08:48)
[2017-09-05] MEDS: ATORVASTATIN CALCIUM 20 MG TABLET PO SCH (08:48)
[2017-09-05] MEDS: BENZONATATE 100 MG CAPSULE PO SCH ×3 (08:48→19:43)
[2017-09-05] MEDS: ASPIRIN 81 MG CHEWABLE TABLET PO SCH (08:48)
[2017-09-05] MEDS: DOCUSATE SODIUM 100 MG CAPSULE PO SCH ×2 (08:48→19:43)
[2017-09-05] MEDS: AmLODIPine BESYLATE 10 MG TABLET PO SCH (08:48)
[2017-09-05] MEDS: DIVALPROEX SODIUM 500 MG ER TABLET PO SCH ×2 (08:49→19:43)
[2017-09-05] MEDS: FLUTICASONE/VILANTEROL 200-25 MCG/INH INHALER [14] IH SCH (08:49)
[2017-09-05] MEDS: GuaiFENesin SR 600 MG ER TABLET PO SCH ×2 (09:00→19:43)
[2017-09-05 11:09] VITALS: BP 119/73
[2017-09-05] MEDS: BUDESONIDE 0.5 MG/2 ML NEB SOLUTION NEB SCH ×2 (16:00→19:59)
[2017-09-05 16:32] VITALS: BP 123/75
[2017-09-05 19:18] VITALS: BP 130/71
[2017-09-05] MEDS: RisperiDONE 4 MG TABLET PO SCH (19:43)
[2017-09-05] MEDS: ZOLPIDEM TARTRATE 5 MG TABLET PO PRN (19:43)
[2017-09-05] MEDS: ChlorproMAZINE HCL 100 MG TABLET PO SCH (19:43)
[2017-09-05 20:07] LABS: ABG A-A DIFF O2 32.5 mmHg (10-20.0); ABG BASE EXCESS 9.5 mmol/L (-2.0-3.0); ABG CARBOXYHEMOGLOBIN 1.5 % (0.0-1.5); ABG HCO3 31.3 mmol/L (22.0-26.0); ABG METHEMOGLOBIN 0.2 % (0.0-1.5); ABG OXYGEN SATURATION 84.3 % (95.0-98.0); ABG OXYHEMOGLOBIN 82.9 % (94.0-100.0); ABG PCO2 53 mmHg (35-45); ABG PH 7.421 (7.35-7.450); ABG TOTAL HEMOGLOBIN 13.7 G/dL (12.0-18.0); O2 DEVICE,BLOOD GAS ROOM AIR (ROOM AIR); PO2, ARTERIAL BG 53.3 mmHg (84.0-92.0); SITE, BLOOD GAS RT RADIAL; SOURCE, BLOOD GAS ARTERIAL; TEMPERATURE, FAHRENHEIT, BG 98.6 FAHREN (96.0-98.6)
[2017-09-05] MEDS: MONTELUKAST SODIUM 10 MG TABLET PO SCH (21:00)
[2017-09-05] MEDS: AZITHROMYCIN 500 MG/NS 250 ML IV SCH (22:13)
[2017-09-06 00:23] VITALS: BP 124/72
[2017-09-06] MEDS: IPRATROPIUM BROMIDE 0.5 MG/2.5 ML NEB SOLUTION NEB SCH ×5 (01:41→20:38)
[2017-09-06] MEDS: ALBUTEROL SULFATE 2.5 MG/0.5 ML NEB SOLUTION NEB SCH ×5 (01:41→20:38)
[2017-09-06 05:00] VITALS: BP 127/68
[2017-09-06] MEDS: MethylPREDNISolone SOD SUCC 125 MG/2 ML VIAL IVP SCH ×2 (05:46→11:35)
[2017-09-06] MEDS: LEVOTHYROXINE SODIUM 200 MCG TABLET PO SCH (05:47)
[2017-09-06 07:53] VITALS: BP 132/78
[2017-09-06] MEDS: TIOTROPIUM BROMIDE 18 MCG/INH HANDIHALER [5] IH SCH (08:24)
[2017-09-06] MEDS: PANTOPRAZOLE SODIUM 40 MG DR TABLET PO SCH (08:25)
[2017-09-06] MEDS: FLUTICASONE/VILANTEROL 200-25 MCG/INH INHALER [14] IH SCH (08:25)
[2017-09-06] MEDS: LISINOPRIL 10 MG TABLET PO SCH (08:25)
[2017-09-06] MEDS: BENZONATATE 100 MG CAPSULE PO SCH ×3 (08:25→20:31)
[2017-09-06] MEDS: ASPIRIN 81 MG CHEWABLE TABLET PO SCH (08:26)
[2017-09-06] MEDS: GuaiFENesin SR 600 MG ER TABLET PO SCH ×2 (08:26→20:32)
[2017-09-06] MEDS: FUROSEMIDE 40 MG TABLET PO SCH ×2 (08:26→20:31)
[2017-09-06] MEDS: AmLODIPine BESYLATE 10 MG TABLET PO SCH (08:26)
[2017-09-06] MEDS: DIVALPROEX SODIUM 500 MG ER TABLET PO SCH ×2 (08:26→20:32)
[2017-09-06] MEDS: DOCUSATE SODIUM 100 MG CAPSULE PO SCH ×2 (08:26→20:32)
[2017-09-06] MEDS: ATORVASTATIN CALCIUM 20 MG TABLET PO SCH (08:26)
[2017-09-06] MEDS: HEPARIN SODIUM,PORCINE 5,000 UNITS/ML VIAL SQ SCH ×3 (08:26→23:41)
[2017-09-06] MEDS: BUDESONIDE 0.5 MG/2 ML NEB SOLUTION NEB SCH ×3 (09:00→20:38)
[2017-09-06 11:34] VITALS: BP 126/76
[2017-09-06] MEDS ORDERED: DEXTROSE 50%-WATER 25 GM/50 ML SYRINGE IVP PRN (14:30)
[2017-09-06] MEDS: MethylPREDNISolone SOD SUCC 40 MG/ML VIAL IVP SCH ×2 (15:40→23:41)
[2017-09-06 15:54] VITALS: BP 130/70
[2017-09-06] MEDS: INSULIN LISPRO 100 UNITS/ML SQ PRN ×2 (17:51→20:41)
[2017-09-06 18:12] LABS: GLUCOMETER DEV NAME(LOC) 6N 1E; GLUCOSE,POINT OF CARE 366 MG/DL (70-110)
[2017-09-06 19:49] VITALS: BP 151/76
[2017-09-06] MEDS: ZOLPIDEM TARTRATE 5 MG TABLET PO PRN (20:31)
[2017-09-06] MEDS: RisperiDONE 4 MG TABLET PO SCH (20:31)
[2017-09-06] MEDS: ChlorproMAZINE HCL 100 MG TABLET PO SCH (20:31)
[2017-09-06] MEDS: MONTELUKAST SODIUM 10 MG TABLET PO SCH (20:31)
[2017-09-06 20:47] LABS: GLUCOMETER DEV NAME(LOC) 6N 1E; GLUCOSE,POINT OF CARE 386 MG/DL (70-110)
[2017-09-06] MEDS: AZITHROMYCIN 500 MG/NS 250 ML IV SCH (22:29)
[2017-09-07] VITALS (7 sets, daily range): BP systolic 127–146; BP diastolic 68–86
[2017-09-07] MEDS: IPRATROPIUM BROMIDE 0.5 MG/2.5 ML NEB SOLUTION NEB SCH ×4 (02:00→21:19)
[2017-09-07] MEDS: ALBUTEROL SULFATE 2.5 MG/0.5 ML NEB SOLUTION NEB SCH ×4 (02:00→21:18)
[2017-09-07] MEDS: MethylPREDNISolone SOD SUCC 40 MG/ML VIAL IVP SCH ×3 (06:05→23:47)
[2017-09-07] MEDS: LEVOTHYROXINE SODIUM 200 MCG TABLET PO SCH (06:05)
[2017-09-07] MEDS: INSULIN LISPRO 100 UNITS/ML SQ PRN ×4 (06:13→21:09)
[2017-09-07 06:16] LABS: ANION GAP -1 mmol/L (8-16); CALCIUM, TOTAL 8.6 mg/dL (8.8-10.5); CHLORIDE 97 mmol/L (98-107); CREATININE 1.08 mg/dL (0.60-1.30); GLOMERULAR FILTR. RATE CALC > 60 mL/min (>60); GLUCOSE,RANDOM 312 mg/dL (70-110); POTASSIUM 4.8 mmol/L (3.5-5.1); SODIUM SERUM 137 mmol/L (136-145); UREA NITROGEN, BLOOD 24 mg/dL (7-18)
[2017-09-07 06:19] LABS: BASOPHILS % (AUTO) 0.1 % (0.0-2.0); CARBON DIOXIDE 41 mmol/L (22-29); EOSINOPHILS % (AUTO) 0 % (1.0-6.0); HEMATOCRIT 41.1 % (41-53); HEMOGLOBIN 13.3 g/dL (13.5-17.5); LYMPHOCYTES # (AUTO) 0.4 K/uL (1.0-4.8); LYMPHOCYTES % (AUTO) 10.7 % (22.0-44.0); MEAN CORPUSCULAR HEMOGLOBIN 28.3 pg (26.0-34.0); MEAN CORPUSCULAR HGB CONC 32.5 G/dL (31.0-37.0); MEAN CORPUSCULAR VOLUME 87 fL (80-100); MONOCYTES # (AUTO) 0.2 K/uL (0.1-1.0); MONOCYTES % (AUTO) 5.1 % (2.0-9.0); NEUTROPHILS # (AUTO) 3.5 K/uL (1.8-7.7); NEUTROPHILS % (AUTO) 84.1 % (40.0-70.0); PLATELET COUNT (AUTO) 165 K/uL (150-450); RED BLOOD CELL COUNT(AUTO) 4.71 MIL/uL (4.50-5.90); RED CELL DISTRIBUTION WIDTH 15.6 % (11.5-14.5)
[2017-09-07] MEDS: BENZONATATE 100 MG CAPSULE PO SCH ×3 (08:40→21:07)
[2017-09-07] MEDS: DIVALPROEX SODIUM 500 MG ER TABLET PO SCH ×2 (08:41→21:07)
[2017-09-07] MEDS: TIOTROPIUM BROMIDE 18 MCG/INH HANDIHALER [5] IH SCH (08:42)
[2017-09-07] MEDS: FLUTICASONE/VILANTEROL 200-25 MCG/INH INHALER [14] IH SCH (08:42)
[2017-09-07] MEDS: HEPARIN SODIUM,PORCINE 5,000 UNITS/ML VIAL SQ SCH ×3 (08:42→23:58)
[2017-09-07] MEDS: GuaiFENesin SR 600 MG ER TABLET PO SCH ×2 (08:43→21:08)
[2017-09-07] MEDS: PANTOPRAZOLE SODIUM 40 MG DR TABLET PO SCH (08:43)
[2017-09-07] MEDS: ASPIRIN 81 MG CHEWABLE TABLET PO SCH (08:43)
[2017-09-07] MEDS: AmLODIPine BESYLATE 10 MG TABLET PO SCH (08:43)
[2017-09-07] MEDS: LISINOPRIL 10 MG TABLET PO SCH (08:44)
[2017-09-07] MEDS: DOCUSATE SODIUM 100 MG CAPSULE PO SCH ×2 (08:44→21:07)
[2017-09-07] MEDS: ATORVASTATIN CALCIUM 20 MG TABLET PO SCH (08:44)
[2017-09-07] MEDS: FUROSEMIDE 40 MG TABLET PO SCH ×2 (08:44→21:07)
[2017-09-07] MEDS: BUDESONIDE 0.5 MG/2 ML NEB SOLUTION NEB SCH ×3 (16:43→21:19)
[2017-09-07 18:03] LABS: GLUCOMETER DEV NAME(LOC) 6N 1E; GLUCOSE,POINT OF CARE 328 MG/DL (70-110)
[2017-09-07] MEDS: ChlorproMAZINE HCL 100 MG TABLET PO SCH (21:05)
[2017-09-07] MEDS: MONTELUKAST SODIUM 10 MG TABLET PO SCH (21:05)
[2017-09-07] MEDS: RisperiDONE 4 MG TABLET PO SCH (21:07)
[2017-09-07] MEDS: AZITHROMYCIN 500 MG/NS 250 ML IV SCH (21:08)
[2017-09-08 00:08] LABS: GLUCOMETER DEV NAME(LOC) 6N 1E; GLUCOSE,POINT OF CARE 332 MG/DL (70-110)
[2017-09-08] MEDS: ALBUTEROL SULFATE 2.5 MG/0.5 ML NEB SOLUTION NEB SCH ×3 (02:00→14:00)
[2017-09-08] MEDS: IPRATROPIUM BROMIDE 0.5 MG/2.5 ML NEB SOLUTION NEB SCH ×3 (02:00→14:00)
[2017-09-08 04:00] VITALS: BP 124/73
[2017-09-08 05:02] LABS: GLUCOMETER DEV NAME(LOC) 6N 2D; GLUCOSE,POINT OF CARE 324 MG/DL (70-110)
[2017-09-08 05:02] LABS: GLUCOMETER DEV NAME(LOC) 6N 2D; GLUCOSE,POINT OF CARE 274 MG/DL (70-110)
[2017-09-08] MEDS: INSULIN LISPRO 100 UNITS/ML SQ PRN ×2 (05:19→11:58)
[2017-09-08] MEDS: LEVOTHYROXINE SODIUM 200 MCG TABLET PO SCH (05:19)
[2017-09-08 05:57] LABS: GLUCOMETER DEV NAME(LOC) 6N 2D; GLUCOSE,POINT OF CARE 230 MG/DL (70-110)
[2017-09-08 07:01] LABS: EOSINOPHILS % (AUTO) 0 % (1.0-6.0); HEMATOCRIT 40.6 % (41-53); HEMOGLOBIN 13.4 g/dL (13.5-17.5); LYMPHOCYTES % (AUTO) 24.1 % (22.0-44.0); MEAN CORPUSCULAR HEMOGLOBIN 28.4 pg (26.0-34.0); MEAN CORPUSCULAR HGB CONC 33.1 G/dL (31.0-37.0); MEAN CORPUSCULAR VOLUME 86 fL (80-100); MONOCYTES # (AUTO) 0.4 K/uL (0.1-1.0); MONOCYTES % (AUTO) 9.3 % (2.0-9.0); NEUTROPHILS # (AUTO) 2.8 K/uL (1.8-7.7); NEUTROPHILS % (AUTO) 66.6 % (40.0-70.0); PLATELET COUNT (AUTO) 160 K/uL (150-450); RED BLOOD CELL COUNT(AUTO) 4.73 MIL/uL (4.50-5.90); RED CELL DISTRIBUTION WIDTH 15.4 % (11.5-14.5)
[2017-09-08 07:35] VITALS: BP 132/78
[2017-09-08 07:35] LABS: ANION GAP 1 mmol/L (8-16); CALCIUM, TOTAL 8.4 mg/dL (8.8-10.5); CARBON DIOXIDE 39 mmol/L (22-29); CHLORIDE 95 mmol/L (98-107); CREATININE 0.95 mg/dL (0.60-1.30); GLOMERULAR FILTR. RATE CALC > 60 mL/min (>60); GLUCOSE,RANDOM 214 mg/dL (70-110); POTASSIUM 4.4 mmol/L (3.5-5.1); SODIUM SERUM 135 mmol/L (136-145); UREA NITROGEN, BLOOD 24 mg/dL (7-18)
[2017-09-08] MEDS: BUDESONIDE 0.5 MG/2 ML NEB SOLUTION NEB SCH ×2 (08:09→16:00)
[2017-09-08] MEDS: TIOTROPIUM BROMIDE 18 MCG/INH HANDIHALER [5] IH SCH (08:22)
[2017-09-08] MEDS: HEPARIN SODIUM,PORCINE 5,000 UNITS/ML VIAL SQ SCH ×2 (08:23→16:27)
[2017-09-08] MEDS: MethylPREDNISolone SOD SUCC 40 MG/ML VIAL IVP SCH ×2 (08:23→16:27)
[2017-09-08] MEDS: LISINOPRIL 10 MG TABLET PO SCH (08:23)
[2017-09-08] MEDS: BENZONATATE 100 MG CAPSULE PO SCH ×2 (08:23→16:26)
[2017-09-08] MEDS: DOCUSATE SODIUM 100 MG CAPSULE PO SCH (08:23)
[2017-09-08] MEDS: FLUTICASONE/VILANTEROL 200-25 MCG/INH INHALER [14] IH SCH (08:23)
[2017-09-08] MEDS: PANTOPRAZOLE SODIUM 40 MG DR TABLET PO SCH (08:23)
[2017-09-08] MEDS: FUROSEMIDE 40 MG TABLET PO SCH (08:23)
[2017-09-08] MEDS: ASPIRIN 81 MG CHEWABLE TABLET PO SCH (08:24)
[2017-09-08] MEDS: ATORVASTATIN CALCIUM 20 MG TABLET PO SCH (08:24)
[2017-09-08] MEDS: GuaiFENesin SR 600 MG ER TABLET PO SCH (08:24)
[2017-09-08] MEDS: AmLODIPine BESYLATE 10 MG TABLET PO SCH (08:24)
[2017-09-08] MEDS: DIVALPROEX SODIUM 500 MG ER TABLET PO SCH (08:24)
[2017-09-08 11:25] VITALS: BP 117/72
[2017-09-08 16:01] VITALS: BP 128/78
[2017-09-08 20:58] LABS: GLUCOMETER DEV NAME(LOC) 6N 2D; GLUCOSE,POINT OF CARE 282 MG/DL (70-110)
== END 2017-09-08 17:45 | DRG 140 ==
LOC: EMS 16:20 → 5S 20:49 → 6N 09-05 18:54
PROVIDERS: ADMIT Internal Medicine; ATTEND Internal Medicine
PROC: 5A09357 Assistance with Respiratory Ventilation, Less than 24 Consecutive Hours, Continuous Positive Airway Pressure (ICD-10-PCS; principal; 2017-09-03)
PROC: 5A09357 Assistance with Respiratory Ventilation, Less than 24 Consecutive Hours, Continuous Positive Airway Pressure (ICD-10-PCS; 2017-09-04)
PROC: 5A09357 Assistance with Respiratory Ventilation, Less than 24 Consecutive Hours, Continuous Positive Airway Pressure (ICD-10-PCS; 2017-09-05)
DX: J44.1 Chronic obstructive pulmonary disease with (acute) exacerbation (principal); J96.00 Acute respiratory failure, unspecified whether with hypoxia or hypercapnia; R45.851 Suicidal ideations; Z99.81 Dependence on supplemental oxygen; E03.9 Hypothyroidism, unspecified; E11.9 Type 2 diabetes mellitus without complications; E78.5 Hyperlipidemia, unspecified; F60.9 Personality disorder, unspecified; I10 Essential (primary) hypertension; K21.9 Gastro-esophageal reflux disease without esophagitis; G47.33 Obstructive sleep apnea (adult) (pediatric); F31.9 Bipolar disorder, unspecified; E66.01 Morbid (severe) obesity due to excess calories; F14.90 Cocaine use, unspecified, uncomplicated; F15.90 Other stimulant use, unspecified, uncomplicated; F12.90 Cannabis use, unspecified, uncomplicated; F17.210 Nicotine dependence, cigarettes, uncomplicated; F10.20 Alcohol dependence, uncomplicated; Z68.41 Body mass index [BMI] 40.0-44.9, adult; Z88.2 Allergy status to sulfonamides; Z79.82 Long term (current) use of aspirin; Z79.899 Other long term (current) drug therapy
CPT/HCPCS: 71250; 82805; 84443; 87040; 90471; 94640; 94644; 94660; 97116; 97161; 97530; 99291; G0480; J0456; J1644; J2920; J2930; J7040

== ENCOUNTER 2017-11-09 12:19 | Emergency (ER) | payer OTHER ==
[~2017-11-09] VITALS: Ht 193 cm; Wt 136.3 kg
[~2017-11-09 12:19] MED LIST changes: +ADV250 IH; +AMLO-512 PO; +ARIP15TA2 PO; +ASPI81 PO; +ATOR20TA86 PO; -ATOR40TA28 PO; +COMBISP IH; -DIVA500T35 PO; +DIVA500T52 PO; +FAMO20 PO; +FURO40 PO; -LEVO100 PO; +LEVO200 PO; +LEVO500 PO; -LISI-660 PO; +LISI-661 PO; -METF500T6 PO; +MONT10TA21 PO; +NICO-800 TD; -OMEP20 PO; -OXYB5 PO; +PANT40TA25 PO; +PRED20 PO; -RISP3 PO; +SERT100T12 PO; +TIOT185 IH; -TOLT4CAP33 PO; -VITAD1000 PO
[2017-11-09 12:27] VITALS: BP 161/88
[2017-11-09] MEDS ORDERED: IPRAHFA IH (13:26)
[2017-11-09] MEDS ORDERED: ADV250 IH (13:26)
[2017-11-09] MEDS ORDERED: HALOPERIDOL 5 MG TABLET PO ONE (15:00)
[2017-11-09] MEDS ORDERED: LORazepam 2 MG TABLET PO ONE (15:00)
[2017-11-09] MEDS ORDERED: LORazepam 1 MG TABLET PO ONE (16:30)
== END 2017-11-09 16:45 | disposition home or self-care (01) ==
LOC: EMS 12:21
DX: F31.9 Bipolar disorder, unspecified (principal); F29 Unspecified psychosis not due to a substance or known physiological condition; J44.9 Chronic obstructive pulmonary disease, unspecified; E11.9 Type 2 diabetes mellitus without complications; I10 Essential (primary) hypertension; E03.9 Hypothyroidism, unspecified; E66.01 Morbid (severe) obesity due to excess calories; F17.210 Nicotine dependence, cigarettes, uncomplicated; F12.90 Cannabis use, unspecified, uncomplicated; F19.90 Other psychoactive substance use, unspecified, uncomplicated; F14.90 Cocaine use, unspecified, uncomplicated; Z88.2 Allergy status to sulfonamides; Z88.0 Allergy status to penicillin; Z68.36 Body mass index [BMI] 36.0-36.9, adult
CPT/HCPCS: 99284

== ENCOUNTER 2017-11-26 22:08 | Emergency (ER) | payer OTHER ==
[~2017-11-26] VITALS: Ht 193 cm; Wt 159.1 kg
[~2017-11-26 22:08] MED LIST changes: +IPRAHFA IH; -LEVO500 PO
[2017-11-26] MEDS ORDERED: TOPI100T37 PO (22:47)
[2017-11-26] MEDS ORDERED: IPRA3AMP24 IH (22:47)
[2017-11-26] MEDS ORDERED: OLAN10TA3 PO ×3 (22:47)
[2017-11-26] MEDS ORDERED: LEVO250 PO (22:47)
[2017-11-27] MEDS ORDERED: HALOPERIDOL 5 MG TABLET PO ONE (00:45)
[2017-11-27] MEDS ORDERED: DiphenhydrAMINE HCL 25 MG CAPSULE PO ONE (00:45)
[2017-11-27] MEDS ORDERED: LORazepam 2 MG TABLET PO ONE ×2 (00:45→02:30)
[2017-11-27] MEDS ORDERED: LORazepam 2 MG TABLET PO PRN (04:45)
[2017-11-27] MEDS ORDERED: HALOPERIDOL 5 MG TABLET PO PRN (04:45)
[2017-11-27] MEDS ORDERED: ZOLPIDEM TARTRATE 10 MG TABLET PO PRN (04:45)
[2017-11-27 18:45] VITALS: BP 131/92
== END 2017-11-27 18:45 | disposition home or self-care (01) ==
LOC: EMS 22:09
DX: F20.0 Paranoid schizophrenia (principal); R60.0 Localized edema; F41.9 Anxiety disorder, unspecified; F31.9 Bipolar disorder, unspecified; I11.0 Hypertensive heart disease with heart failure; I50.9 Heart failure, unspecified; J44.9 Chronic obstructive pulmonary disease, unspecified; E11.9 Type 2 diabetes mellitus without complications; E03.9 Hypothyroidism, unspecified; E66.01 Morbid (severe) obesity due to excess calories; F12.90 Cannabis use, unspecified, uncomplicated; F19.90 Other psychoactive substance use, unspecified, uncomplicated; F14.90 Cocaine use, unspecified, uncomplicated; F17.210 Nicotine dependence, cigarettes, uncomplicated; Z88.2 Allergy status to sulfonamides; Z88.0 Allergy status to penicillin; Z68.41 Body mass index [BMI] 40.0-44.9, adult
CPT/HCPCS: 94660; 99284; 99285

== ENCOUNTER 2017-11-27 20:04 | Inpatient (IN) | payer OTHER ==
[~2017-11-27] VITALS: Ht 190.5 cm; Wt 125.0 kg
[~2017-11-27 20:04] MED LIST changes: -AMLO-512 PO; -ARIP15TA2 PO; -FAMO20 PO; +IPRA3AMP24 IH; -IPRAHFA IH; +LEVO250 PO; -LISI-661 PO; -MONT10TA21 PO; -NICO-800 TD; +OLAN10TA3 PO; -PANT40TA25 PO; -PRED20 PO; -SERT100T12 PO; +TOPI100T37 PO
[2017-11-28] MEDS ORDERED: ONDANSETRON HCL 4 MG/2 ML VIAL IVP PRN ×2 (04:15→05:15)
[2017-11-28] MEDS ORDERED: 0.9% SODIUM CHLORIDE 10 ML SYRINGE IVP PRN (04:15)
[2017-11-28] MEDS ORDERED: ACETAMINOPHEN 325 MG TABLET PO PRN ×2 (04:15→05:15)
[2017-11-28 04:57] LABS: BASOPHILS % (AUTO) 0.6 % (0.0-2.0); EOSINOPHILS % (AUTO) 1.2 % (1.0-6.0); HEMATOCRIT 38.2 % (41-53); HEMOGLOBIN 12.7 g/dL (13.5-17.5); LYMPHOCYTES # (AUTO) 1.6 K/uL (1.0-4.8); LYMPHOCYTES % (AUTO) 20.8 % (22.0-44.0); MEAN CORPUSCULAR HEMOGLOBIN 28.3 pg (26.0-34.0); MEAN CORPUSCULAR HGB CONC 33.3 G/dL (31.0-37.0); MEAN CORPUSCULAR VOLUME 85 fL (80-100); MONOCYTES # (AUTO) 0.6 K/uL (0.1-1.0); MONOCYTES % (AUTO) 7.9 % (2.0-9.0); NEUTROPHILS # (AUTO) 5.4 K/uL (1.8-7.7); NEUTROPHILS % (AUTO) 69.5 % (40.0-70.0); PLATELET COUNT (AUTO) 231 K/uL (150-450); RED BLOOD CELL COUNT(AUTO) 4.49 MIL/uL (4.50-5.90)
[2017-11-28] MEDS ORDERED: LORazepam 1 MG TABLET PO ONE (05:00)
[2017-11-28] MEDS ORDERED: HALOPERIDOL 5 MG TABLET PO ONE (05:00)
[2017-11-28 05:08] LABS: ALANINE AMINOTRANSFERASE 29 U/L (12-78); ALBUMIN 3.3 g/dL (3.4-5.0); ALKALINE PHOSPHATASE 66 U/L (46-116); ANION GAP 4 mmol/L (8-16); ASPARTATE AMINOTRANSFERASE 35 U/L (15-37); BILIRUBIN,TOTAL 0.4 mg/dL (0.1-1.0); CARBON DIOXIDE 31 mmol/L (22-29); CHLORIDE 101 mmol/L (98-107); CREATININE 0.95 mg/dL (0.60-1.30); GLOMERULAR FILTR. RATE CALC > 60 mL/min (>60); GLUCOSE,RANDOM 134 mg/dL (70-110); POTASSIUM 3.9 mmol/L (3.5-5.1); SODIUM SERUM 136 mmol/L (136-145); TOTAL PROTEIN, SERUM 7.2 g/dL (6.4-8.2)
[2017-11-28 05:15] LABS: UREA NITROGEN, BLOOD 14 mg/dL (7-18)
[2017-11-28] MEDS ORDERED: MORPHINE SULFATE 2 MG/ML SYRINGE IVP PRN (05:15)
[2017-11-28] MEDS ORDERED: BISACODYL 10 MG RECTAL RECTAL SUPPOSITORY PR PRN (05:15)
[2017-11-28] MEDS ORDERED: MAGNESIUM HYDROXIDE SUSPENSION 30 ML UDCUP PO PRN (05:15)
[2017-11-28] MEDS ORDERED: MAGNESIUM SULFATE 2 GM, MVI, ADULT NO.1 WITH VIT K 10 ML, THIAMINE HCL 100 MG, FOLIC AC... IV ONE ×5 (05:15)
[2017-11-28] MEDS ORDERED: HYDROCODONE/ACETAMINOPHEN 5-325 MG TABLET PO PRN (05:15)
[2017-11-28 05:17] LABS: B-TYPE NATRIURETIC PEPTIDE 22 pg/mL (0-100)
[2017-11-28] MEDS ORDERED: ALBUTEROL SULFATE/IPRATROPIUM 100-20 MCG/SPRAY 4 GM INHALER IH PRN (05:30)
[2017-11-28] MEDS ORDERED: MISC MED-CONVERTED FROM AMBULATORY (Ipratropium/Albuterol Sulfate (Duoneb 2.5-0.5 Mg/3 Ml IH PRN (05:30)
[2017-11-28] MEDS ORDERED: IPRATROPIUM BROMIDE 0.5 MG/2.5 ML NEB SOLUTION NEB PRN ×2 (05:30)
[2017-11-28] MEDS ORDERED: ALBUTEROL SULFATE 2.5 MG/0.5 ML NEB SOLUTION NEB PRN ×2 (05:30)
[2017-11-28] MEDS: LEVOTHYROXINE SODIUM 200 MCG TABLET PO SCH (07:03)
[2017-11-28 08:10] VITALS: BP 130/69
[2017-11-28] MEDS: HEPARIN SODIUM,PORCINE 5,000 UNITS/ML VIAL SQ SCH ×3 (09:17→23:16)
[2017-11-28] MEDS: ASPIRIN 81 MG CHEWABLE TABLET PO SCH (09:17)
[2017-11-28] MEDS: DIVALPROEX SODIUM 500 MG ER TABLET PO SCH ×2 (09:18→20:42)
[2017-11-28] MEDS: PANTOPRAZOLE SODIUM 40 MG DR TABLET PO SCH (09:18)
[2017-11-28] MEDS: ATORVASTATIN CALCIUM 20 MG TABLET PO SCH (09:18)
[2017-11-28] MEDS: DOCUSATE SODIUM 100 MG CAPSULE PO SCH ×2 (09:20→20:44)
[2017-11-28] MEDS: FUROSEMIDE 40 MG TABLET PO SCH ×2 (09:20→20:42)
[2017-11-28] MEDS: OLANZapine 10 MG TABLET PO SCH ×2 (09:20→20:42)
[2017-11-28] MEDS: TOPIRAMATE 100 MG TABLET PO SCH ×3 (09:20→20:42)
[2017-11-28 11:00] VITALS: BP 131/69
[2017-11-28 15:15] VITALS: BP 124/66
[2017-11-28 20:00] VITALS: BP 142/81
[2017-11-28] MEDS: SERTRALINE HCL 100 MG TABLET PO SCH (20:42)
[2017-11-28] MEDS: ZOLPIDEM TARTRATE 5 MG TABLET PO PRN (23:16)
[2017-11-29 06:00] VITALS: BP 125/64
[2017-11-29] MEDS: LEVOTHYROXINE SODIUM 200 MCG TABLET PO SCH (06:11)
[2017-11-29 07:11] VITALS: BP 135/94
[2017-11-29] MEDS: HEPARIN SODIUM,PORCINE 5,000 UNITS/ML VIAL SQ SCH ×3 (08:00→15:18)
[2017-11-29] MEDS: DIVALPROEX SODIUM 500 MG ER TABLET PO SCH ×2 (08:57→21:31)
[2017-11-29] MEDS: FUROSEMIDE 40 MG TABLET PO SCH ×2 (08:58→21:31)
[2017-11-29] MEDS: DOCUSATE SODIUM 100 MG CAPSULE PO SCH ×2 (08:59→21:31)
[2017-11-29] MEDS: PANTOPRAZOLE SODIUM 40 MG DR TABLET PO SCH (09:00)
[2017-11-29] MEDS: ATORVASTATIN CALCIUM 20 MG TABLET PO SCH (09:00)
[2017-11-29] MEDS: ASPIRIN 81 MG CHEWABLE TABLET PO SCH (09:00)
[2017-11-29] MEDS: SERTRALINE HCL 100 MG TABLET PO SCH (09:09)
[2017-11-29] MEDS: TOPIRAMATE 100 MG TABLET PO SCH ×3 (09:09→21:31)
[2017-11-29] MEDS: OLANZapine 10 MG TABLET PO SCH ×3 (09:11→21:31)
[2017-11-29 11:51] VITALS: BP 118/72
[2017-11-29 15:44] VITALS: BP 160/79
[2017-11-29 19:35] VITALS: BP 158/80
[2017-11-29] MEDS: ZOLPIDEM TARTRATE 5 MG TABLET PO PRN (21:34)
[2017-11-30] VITALS (7 sets, daily range): BP systolic 132–148; BP diastolic 74–93
[2017-11-30] MEDS: HEPARIN SODIUM,PORCINE 5,000 UNITS/ML VIAL SQ SCH ×4 (00:26→23:15)
[2017-11-30] MEDS: LEVOTHYROXINE SODIUM 200 MCG TABLET PO SCH (05:57)
[2017-11-30] MEDS: ATORVASTATIN CALCIUM 20 MG TABLET PO SCH (08:10)
[2017-11-30] MEDS: FUROSEMIDE 40 MG TABLET PO SCH ×2 (08:10→20:09)
[2017-11-30] MEDS: DOCUSATE SODIUM 100 MG CAPSULE PO SCH ×2 (08:10→20:09)
[2017-11-30] MEDS: DIVALPROEX SODIUM 500 MG ER TABLET PO SCH ×2 (08:10→20:09)
[2017-11-30] MEDS: OLANZapine 10 MG TABLET PO SCH ×2 (08:10→20:11)
[2017-11-30] MEDS: TOPIRAMATE 100 MG TABLET PO SCH ×3 (08:10→20:09)
[2017-11-30] MEDS: PANTOPRAZOLE SODIUM 40 MG DR TABLET PO SCH (08:11)
[2017-11-30] MEDS: ASPIRIN 81 MG CHEWABLE TABLET PO SCH (08:11)
[2017-11-30] MEDS: SERTRALINE HCL 100 MG TABLET PO SCH (20:09)
[2017-11-30] MEDS: ZOLPIDEM TARTRATE 5 MG TABLET PO PRN (23:13)
[2017-12-01 05:13] VITALS: BP 136/73
[2017-12-01] MEDS: LEVOTHYROXINE SODIUM 200 MCG TABLET PO SCH (06:01)
[2017-12-01 08:16] VITALS: BP 136/81
[2017-12-01] MEDS: ASPIRIN 81 MG CHEWABLE TABLET PO SCH (08:45)
[2017-12-01] MEDS: HEPARIN SODIUM,PORCINE 5,000 UNITS/ML VIAL SQ SCH ×2 (08:45→08:54)
[2017-12-01] MEDS: ATORVASTATIN CALCIUM 20 MG TABLET PO SCH (08:45)
[2017-12-01] MEDS: OLANZapine 10 MG TABLET PO SCH (08:45)
[2017-12-01] MEDS: DIVALPROEX SODIUM 500 MG ER TABLET PO SCH (08:46)
[2017-12-01] MEDS: PANTOPRAZOLE SODIUM 40 MG DR TABLET PO SCH (08:46)
[2017-12-01] MEDS: FUROSEMIDE 40 MG TABLET PO SCH (08:46)
[2017-12-01] MEDS: DOCUSATE SODIUM 100 MG CAPSULE PO SCH (08:46)
[2017-12-01] MEDS: TOPIRAMATE 100 MG TABLET PO SCH (08:48)
[2017-12-01 10:52] LABS: GLUCOSE,POINT OF CARE 121 MG/DL (70-110)
[2017-12-01 12:13] VITALS: BP 141/75
[2017-12-01] MEDS ORDERED: FURO-152 PO (13:39)
[2017-12-01] MEDS ORDERED: SERT100T12 PO (13:39)
== END 2017-12-01 15:14 | disposition home or self-care (01) | DRG 422 ==
LOC: EMS 22:02 → 6N 11-28 04:30
PROVIDERS: ADMIT Internal Medicine; ATTEND Internal Medicine
DX: E86.0 Dehydration (principal); I11.0 Hypertensive heart disease with heart failure; F33.2 Major depressive disorder, recurrent severe without psychotic features; I50.9 Heart failure, unspecified; F20.9 Schizophrenia, unspecified; G47.33 Obstructive sleep apnea (adult) (pediatric); E03.9 Hypothyroidism, unspecified; E11.9 Type 2 diabetes mellitus without complications; E66.9 Obesity, unspecified; F41.9 Anxiety disorder, unspecified; F60.9 Personality disorder, unspecified; G40.909 Epilepsy, unspecified, not intractable, without status epilepticus; J44.9 Chronic obstructive pulmonary disease, unspecified; F91.1 Conduct disorder, childhood-onset type; F44.81 Dissociative identity disorder; F60.3 Borderline personality disorder; Z88.0 Allergy status to penicillin; Z88.2 Allergy status to sulfonamides; Z68.34 Body mass index [BMI] 34.0-34.9, adult; Z87.891 Personal history of nicotine dependence
CPT/HCPCS: 99285; G0480; J1644; J3411; J3475; J3490; J7030

== ENCOUNTER 2018-01-09 17:08 | Inpatient (IN) | payer MEDICAID, OTHER ==
[~2018-01-09] VITALS: Ht 188 cm; Wt 157.7 kg
[~2018-01-09 17:08] MED LIST changes: +CHLO50 PO; -DIVA500T52 PO; -FURO40 PO; -LEVO250 PO; +METF-960 PO; -OLAN10TA3 PO; +PRED20 PO; -TIOT185 IH; -TOPI100T37 PO
[2018-01-09 17:59] LABS: GLUCOSE,POINT OF CARE 148 MG/DL (70-110)
[2018-01-09 18:12] LABS: BASOPHILS % (AUTO) 0.3 % (0.0-2.0); EOSINOPHILS % (AUTO) 0.6 % (1.0-6.0); HEMATOCRIT 39.7 % (41-53); HEMOGLOBIN 12.8 g/dL (13.5-17.5); LYMPHOCYTES # (AUTO) 2.7 K/uL (1.0-4.8); LYMPHOCYTES % (AUTO) 30.2 % (22.0-44.0); MEAN CORPUSCULAR HEMOGLOBIN 27.7 pg (26.0-34.0); MEAN CORPUSCULAR HGB CONC 32.2 G/dL (31.0-37.0); MEAN CORPUSCULAR VOLUME 86 fL (80-100); MONOCYTES % (AUTO) 10.9 % (2.0-9.0); NEUTROPHILS # (AUTO) 5.1 K/uL (1.8-7.7); PLATELET COUNT (AUTO) 265 K/uL (150-450); RED BLOOD CELL COUNT(AUTO) 4.61 MIL/uL (4.50-5.90); RED CELL DISTRIBUTION WIDTH 16.9 % (11.5-14.5)
[2018-01-09 18:42] LABS: AMPHET/METH SCREEN,URINE NEGATIVE (NEGATIVE); BARBITURATE SCREEN, URINE NEGATIVE (NEGATIVE); BENZODIAZEPINES SCREEN,URINE NEGATIVE (NEGATIVE); CANNABINOID SCREEN,URINE NEGATIVE (NEGATIVE); COCAINE SCREEN,URINE NEGATIVE (NEGATIVE); METHADONE SCREEN, URINE NEGATIVE (NEGATIVE); OPIATE SCREEN,URINE NEGATIVE (NEGATIVE)
[2018-01-09 18:43] LABS: ANION GAP 7 mmol/L (8-16); CALCIUM, TOTAL 8.4 mg/dL (8.8-10.5); CARBON DIOXIDE 30 mmol/L (22-29); CHLORIDE 104 mmol/L (98-107); CREATININE 1.04 mg/dL (0.60-1.30); GLOMERULAR FILTR. RATE CALC > 60 mL/min (>60); GLUCOSE,RANDOM 160 mg/dL (70-110); POTASSIUM 3.5 mmol/L (3.5-5.1); SODIUM SERUM 141 mmol/L (136-145); UREA NITROGEN, BLOOD 21 mg/dL (7-18)
[2018-01-09 18:43] LABS: PHENCYCLIDINE SCREEN,URINE NEGATIVE (NEGATIVE)
[2018-01-09 18:49] LABS: ALANINE AMINOTRANSFERASE 25 U/L (12-78); ALBUMIN 3.4 g/dL (3.4-5.0); ALKALINE PHOSPHATASE 64 U/L (46-116); ASPARTATE AMINOTRANSFERASE 11 U/L (15-37); BILIRUBIN,TOTAL 0.3 mg/dL (0.1-1.0); TOTAL PROTEIN, SERUM 6.9 g/dL (6.4-8.2)
[2018-01-09] MEDS ORDERED: HALOPERIDOL 5 MG TABLET PO PRN (19:15)
[2018-01-09] MEDS ORDERED: ZOLPIDEM TARTRATE 10 MG TABLET PO PRN (19:15)
[2018-01-09] MEDS ORDERED: LORazepam 2 MG TABLET PO PRN (19:15)
[2018-01-09] MEDS ORDERED: MAG HYDROX/AL HYDROX/SIMETH ES 30 ML SUSPENSION UDCUP PO PRN (19:30)
[2018-01-09] MEDS ORDERED: CloNIDine HCL 0.1 MG TABLET PO PRN (19:30)
[2018-01-09] MEDS ORDERED: NICOTINE 14 MG/24 HOUR PATCH TD PRN (19:30)
[2018-01-09] MEDS ORDERED: PETROLATUM,WHITE 71 GM JELLY TP PRN (19:30)
[2018-01-09] MEDS ORDERED: IBUPROFEN 400 MG TABLET PO PRN (19:30)
[2018-01-09] MEDS ORDERED: MAGNESIUM HYDROXIDE SUSPENSION 30 ML UDCUP PO PRN (19:30)
[2018-01-09] MEDS ORDERED: LEVO150 PO (19:30)
[2018-01-09] MEDS ORDERED: LOPERAMIDE HCL 2 MG CAPSULE PO PRN (19:30)
[2018-01-09] MEDS ORDERED: ACETAMINOPHEN 325 MG TABLET PO PRN (19:30)
[2018-01-09] MEDS ORDERED: PRED5 PO (19:30)
[2018-01-09] MEDS ORDERED: ONDANSETRON HCL 4 MG TABLET PO PRN (19:30)
[2018-01-09] MEDS ORDERED: GuaiFENesin/D-METHORPHAN [SUGAR-FREE] 200-20MG/10 ML SYRUP UDCUP PO PRN (19:30)
[2018-01-09] MEDS ORDERED: CHLO100T24 PO (19:30)
[2018-01-09] MEDS ORDERED: ALBUTEROL SULFATE HFA 90 MCG/PUFF 8 GM INHALER IH PRN (19:30)
[2018-01-09] MEDS ORDERED: DOCUSATE SODIUM 100 MG CAPSULE PO PRN (19:30)
[2018-01-09 20:26] VITALS: BP 147/92
[2018-01-09] MEDS ORDERED: IPRATROPIUM BROMIDE 0.5 MG/2.5 ML NEB SOLUTION NEB PRN ×2 (22:30→23:15)
[2018-01-09] MEDS ORDERED: ALBUTEROL SULFATE 2.5 MG/0.5 ML NEB SOLUTION NEB PRN (23:15)
[2018-01-10 05:56] LABS: BASOPHILS % (AUTO) 0.5 % (0.0-2.0); HEMATOCRIT 41.3 % (41-53); HEMOGLOBIN 13.1 g/dL (13.5-17.5); LYMPHOCYTES # (AUTO) 2.4 K/uL (1.0-4.8); LYMPHOCYTES % (AUTO) 31.9 % (22.0-44.0); MEAN CORPUSCULAR HEMOGLOBIN 27.8 pg (26.0-34.0); MEAN CORPUSCULAR HGB CONC 31.8 G/dL (31.0-37.0); MEAN CORPUSCULAR VOLUME 88 fL (80-100); MONOCYTES # (AUTO) 0.7 K/uL (0.1-1.0); MONOCYTES % (AUTO) 9.8 % (2.0-9.0); NEUTROPHILS # (AUTO) 4.2 K/uL (1.8-7.7); NEUTROPHILS % (AUTO) 56.8 % (40.0-70.0); PLATELET COUNT (AUTO) 272 K/uL (150-450); RED BLOOD CELL COUNT(AUTO) 4.72 MIL/uL (4.50-5.90); RED CELL DISTRIBUTION WIDTH 16.8 % (11.5-14.5)
[2018-01-10 06:09] LABS: GLUCOMETER DEV NAME(LOC) 3EI C; GLUCOSE,POINT OF CARE 139 MG/DL (70-110)
[2018-01-10 06:19] LABS: ALANINE AMINOTRANSFERASE 28 U/L (12-78); ALBUMIN 3.1 g/dL (3.4-5.0); ALKALINE PHOSPHATASE 64 U/L (46-116); ANION GAP 5 mmol/L (8-16); ASPARTATE AMINOTRANSFERASE 13 U/L (15-37); BILIRUBIN,TOTAL 0.3 mg/dL (0.1-1.0); CALCIUM, TOTAL 8.1 mg/dL (8.8-10.5); CARBON DIOXIDE 32 mmol/L (22-29); CHLORIDE 104 mmol/L (98-107); CHOLESTEROL 166 mg/dL (131-200); GLOMERULAR FILTR. RATE CALC > 60 mL/min (>60); GLUCOSE,RANDOM 119 mg/dL (70-110); HDL CHOLESTEROL 33 mg/dL (40-60); LDL CHOL (CALC.) 84 mg/dL (0-130); POTASSIUM 4.3 mmol/L (3.5-5.1); SODIUM SERUM 141 mmol/L (136-145); THYROID STIMULATING HORMONE 11.53 uIU/mL (0.36-3.74); TOTAL PROTEIN, SERUM 6.5 g/dL (6.4-8.2); TRIGLYCERIDES 247 mg/dL (15-150); UREA NITROGEN, BLOOD 18 mg/dL (7-18)
[2018-01-10] MEDS: LEVOTHYROXINE SODIUM 150 MCG TABLET PO SCH (06:35)
[2018-01-10] MEDS: MetFORMIN HCL 500 MG TABLET PO SCH (06:35)
[2018-01-10] MEDS: PredniSONE 20 MG TABLET PO SCH (08:04)
[2018-01-10] MEDS: ASPIRIN 81 MG EC TABLET PO SCH (08:04)
[2018-01-10] MEDS: ATORVASTATIN CALCIUM 20 MG TABLET PO SCH (08:04)
[2018-01-10 08:15] VITALS: BP 129/96
[2018-01-10] MEDS ORDERED: FLUTICASONE/SALMETEROL 250 MCG-50 MCG/INH DISKUS INHALER [28] IH SCH (09:00)
[2018-01-10 09:44] LABS: HEMOGLOBIN A1C 6.4 % (4.5-6.2)
[2018-01-10 16:00] VITALS: BP 132/68
[2018-01-10 16:34] LABS: GLUCOMETER DEV NAME(LOC) 3EI C; GLUCOSE,POINT OF CARE 191 MG/DL (70-110)
[2018-01-10] MEDS: OLANZapine 10 MG TABLET PO SCH (16:36)
[2018-01-10] MEDS: DIVALPROEX SODIUM 500 MG ER TABLET PO SCH (21:50)
[2018-01-11 06:19] LABS: GLUCOMETER DEV NAME(LOC) 3EI C; GLUCOSE,POINT OF CARE 122 MG/DL (70-110)
[2018-01-11] MEDS: LEVOTHYROXINE SODIUM 150 MCG TABLET PO SCH (06:48)
[2018-01-11] MEDS: MetFORMIN HCL 500 MG TABLET PO SCH (06:48)
[2018-01-11 08:30] VITALS: BP 137/74
[2018-01-11] MEDS: ASPIRIN 81 MG EC TABLET PO SCH (08:44)
[2018-01-11] MEDS: ATORVASTATIN CALCIUM 20 MG TABLET PO SCH (08:44)
[2018-01-11] MEDS: OLANZapine 10 MG TABLET PO SCH ×2 (08:44→17:12)
[2018-01-11] MEDS: PredniSONE 20 MG TABLET PO SCH (08:44)
[2018-01-11] MEDS: SERTRALINE HCL 100 MG TABLET PO SCH (08:45)
[2018-01-11] MEDS ORDERED: FLUTICASONE/VILANTEROL 200-25 MCG/INH INHALER [14] IH SCH (09:00)
[2018-01-11] MEDS: MUPIROCIN CALCIUM 2% 22 GM OINTMENT NASAL SCH ×2 (10:26→17:13)
[2018-01-11 18:48] VITALS: BP 150/89
[2018-01-11] MEDS: DIVALPROEX SODIUM 500 MG ER TABLET PO SCH (21:55)
[2018-01-12 05:44] LABS: GLUCOMETER DEV NAME(LOC) 3EI C; GLUCOSE,POINT OF CARE 106 MG/DL (70-110)
[2018-01-12] MEDS: MetFORMIN HCL 500 MG TABLET PO SCH (06:39)
[2018-01-12] MEDS: LEVOTHYROXINE SODIUM 150 MCG TABLET PO SCH (06:39)
[2018-01-12 08:30] VITALS: BP 141/85
[2018-01-12] MEDS: PredniSONE 20 MG TABLET PO SCH (10:53)
[2018-01-12] MEDS: ATORVASTATIN CALCIUM 20 MG TABLET PO SCH (10:53)
[2018-01-12] MEDS: MUPIROCIN CALCIUM 2% 22 GM OINTMENT NASAL SCH ×2 (10:53→16:44)
[2018-01-12] MEDS: SERTRALINE HCL 100 MG TABLET PO SCH (10:53)
[2018-01-12] MEDS: OLANZapine 10 MG TABLET PO SCH ×2 (10:53→16:44)
[2018-01-12] MEDS: ASPIRIN 81 MG EC TABLET PO SCH (10:54)
[2018-01-12 16:30] VITALS: BP 150/86
[2018-01-12 16:54] LABS: GLUCOMETER DEV NAME(LOC) 3EI C; GLUCOSE,POINT OF CARE 201 MG/DL (70-110)
[2018-01-12] MEDS: DIVALPROEX SODIUM 500 MG ER TABLET PO SCH (21:54)
[2018-01-13 05:44] LABS: GLUCOMETER DEV NAME(LOC) 3EI C; GLUCOSE,POINT OF CARE 110 MG/DL (70-110)
[2018-01-13] MEDS: LEVOTHYROXINE SODIUM 150 MCG TABLET PO SCH (07:09)
[2018-01-13] MEDS: MetFORMIN HCL 500 MG TABLET PO SCH (07:09)
[2018-01-13] MEDS: ASPIRIN 81 MG EC TABLET PO SCH (09:23)
[2018-01-13] MEDS: PredniSONE 20 MG TABLET PO SCH (09:23)
[2018-01-13] MEDS: ATORVASTATIN CALCIUM 20 MG TABLET PO SCH (09:23)
[2018-01-13] MEDS: SERTRALINE HCL 100 MG TABLET PO SCH (09:23)
[2018-01-13] MEDS: OLANZapine 10 MG TABLET PO SCH ×2 (09:24→17:10)
[2018-01-13 09:49] VITALS: BP 134/74
[2018-01-13] MEDS: MUPIROCIN CALCIUM 2% 22 GM OINTMENT NASAL SCH (17:00)
[2018-01-13 17:15] LABS: GLUCOMETER DEV NAME(LOC) 3EI C; GLUCOSE,POINT OF CARE 268 MG/DL (70-110)
[2018-01-13 21:09] VITALS: BP 134/82
[2018-01-13] MEDS: DIVALPROEX SODIUM 500 MG ER TABLET PO SCH (21:13)
[2018-01-14 05:34] LABS: GLUCOMETER DEV NAME(LOC) 3EI C; GLUCOSE,POINT OF CARE 103 MG/DL (70-110)
[2018-01-14] MEDS: LEVOTHYROXINE SODIUM 150 MCG TABLET PO SCH (06:51)
[2018-01-14] MEDS: MetFORMIN HCL 500 MG TABLET PO SCH (06:51)
[2018-01-14 09:00] VITALS: BP 143/72
[2018-01-14] MEDS: SERTRALINE HCL 100 MG TABLET PO SCH (09:04)
[2018-01-14] MEDS: ATORVASTATIN CALCIUM 20 MG TABLET PO SCH (09:04)
[2018-01-14] MEDS: PredniSONE 20 MG TABLET PO SCH (09:06)
[2018-01-14] MEDS: OLANZapine 10 MG TABLET PO SCH ×2 (09:06→16:28)
[2018-01-14] MEDS: MUPIROCIN CALCIUM 2% 22 GM OINTMENT NASAL SCH ×2 (09:06→16:28)
[2018-01-14] MEDS: ASPIRIN 81 MG EC TABLET PO SCH (09:06)
[2018-01-14 16:34] LABS: GLUCOMETER DEV NAME(LOC) 3EI C; GLUCOSE,POINT OF CARE 186 MG/DL (70-110)
[2018-01-14] MEDS: DIVALPROEX SODIUM 500 MG ER TABLET PO SCH (20:24)
[2018-01-14 21:39] VITALS: BP 137/70
[2018-01-15 05:24] LABS: GLUCOMETER DEV NAME(LOC) 3EI C; GLUCOSE,POINT OF CARE 90 MG/DL (70-110)
[2018-01-15] MEDS: MetFORMIN HCL 500 MG TABLET PO SCH (06:57)
[2018-01-15] MEDS: LEVOTHYROXINE SODIUM 150 MCG TABLET PO SCH (06:57)
[2018-01-15] MEDS: OLANZapine 10 MG TABLET PO SCH (09:06)
[2018-01-15] MEDS: SERTRALINE HCL 100 MG TABLET PO SCH (09:06)
[2018-01-15] MEDS: PredniSONE 20 MG TABLET PO SCH (09:06)
[2018-01-15] MEDS: MUPIROCIN CALCIUM 2% 22 GM OINTMENT NASAL SCH (09:06)
[2018-01-15] MEDS: ASPIRIN 81 MG EC TABLET PO SCH (09:07)
[2018-01-15] MEDS: ATORVASTATIN CALCIUM 20 MG TABLET PO SCH (09:07)
[2018-01-15 10:24] VITALS: BP 166/91
[2018-01-15] MEDS ORDERED: PRED20 PO (11:38)
[2018-01-15] MEDS ORDERED: SERT100T12 PO (11:38)
[2018-01-15] MEDS ORDERED: DIVA500T52 PO (11:40)
[2018-01-15] MEDS ORDERED: OLAN10TA3 PO (11:40)
== END 2018-01-15 15:50 | disposition home or self-care (01) | DRG 751 ==
LOC: EMS 17:10 → 3EI 19:43
PROVIDERS: ADMIT Psychiatry & Neurology Psychiatry; ATTEND Psychiatry & Neurology Psychiatry
DX: F33.3 Major depressive disorder, recurrent, severe with psychotic symptoms (principal); R45.851 Suicidal ideations; I11.0 Hypertensive heart disease with heart failure; E66.01 Morbid (severe) obesity due to excess calories; I50.9 Heart failure, unspecified; G40.909 Epilepsy, unspecified, not intractable, without status epilepticus; F17.210 Nicotine dependence, cigarettes, uncomplicated; F14.90 Cocaine use, unspecified, uncomplicated; E78.5 Hyperlipidemia, unspecified; E11.9 Type 2 diabetes mellitus without complications; E03.9 Hypothyroidism, unspecified; F15.90 Other stimulant use, unspecified, uncomplicated; F41.9 Anxiety disorder, unspecified; F44.81 Dissociative identity disorder; F19.10 Other psychoactive substance abuse, uncomplicated; F60.3 Borderline personality disorder; J44.9 Chronic obstructive pulmonary disease, unspecified; Z88.0 Allergy status to penicillin; Z88.2 Allergy status to sulfonamides; Z71.51 Drug abuse counseling and surveillance of drug abuser; Z68.41 Body mass index [BMI] 40.0-44.9, adult; Z79.84 Long term (current) use of oral hypoglycemic drugs; Z79.899 Other long term (current) drug therapy
CPT/HCPCS: 83036; 84439; 84443; 87081; 99285; G0480; J3535